=== PATIENT | male | born 1965 | race Caucasian/White ===

== ENCOUNTER 2017-10-31 10:52 | Emergency (ER) | payer BC ==
[2017-10-31 11:25] LABS: ADD MAN DIFF? NO
[2017-10-31 11:41] LABS: ANION GAP 8 (6-14); BLOOD UREA NITROGEN 18 mg/dL (8-26); BUN/CREATININE RATIO 20 (6-20); CALCIUM 8.5 mg/dL (8.5-10.1); CARBON DIOXIDE 28 mmol/L (21-32); CHLORIDE 102 mmol/L (98-107); CREATININE 0.9 mg/dL (0.7-1.3); GFR 87.9; GLUCOSE 124 mg/dL (70-99); POTASSIUM 3.9 mmol/L (3.5-5.1); SODIUM 138 mmol/L (136-145)
[2017-10-31 11:47] LABS: ALBUMIN 2.9 g/dL (3.4-5.0); ALBUMIN/GLOBULIN RATIO 0.8 (1.0-1.7); ALK PHOS 75 U/L (46-116); ALT (SGPT) 25 U/L (16-63); AST (SGOT) 27 U/L (15-37); TOTAL BILIRUBIN 0.2 mg/dL (0.2-1.0); TOTAL PROTEIN 6.4 g/dL (6.4-8.2)
[2017-10-31 12:01] LABS: BASO % 0 % (0-3); EOS % 0 % (0-3); HEMATOCRIT 42.9 % (39.0-53.0); HEMOGLOBIN 14.4 g/dL (13.0-17.5); LYMPH # 0.6 x10^3/uL (1.0-4.8); LYMPH % 11 % (24-48); MEAN CORPUSCULAR HEMOGLOBIN 32 pg (25-35); MEAN CORPUSCULAR HGB CONC 34 g/dL (31-37); MEAN CORPUSCULAR VOLUME 95 fL (79-100); MONO # 0.8 x10^3/uL (0.0-1.1); MONO % 14 % (0-9); NEUT # 3.9 x10^3uL (1.8-7.7); NEUT % 74 % (31-73); PLATELET COUNT 249 x10^3/uL (140-400); WHITE BLOOD COUNT 5.3 x10^3/uL (4.0-11.0)
[2017-10-31 12:10] LABS: TROPONINI < 0.017 ng/mL (0.000-0.055)
[2017-10-31] MEDS: IV NORMAL SALINE 1000ML BAG 1,000 ML IV ×2 (12:12)
[2017-10-31 12:15] LABS: MAGNESIUM 1.9 mg/dL (1.8-2.4)
[2017-10-31 12:15] LABS: PHOSPHORUS 2.4 mg/dL (2.6-4.7)
== END 2017-10-31 14:13 | disposition home or self-care (01) ==
LOC: ER 10:52
DX: R42 Dizziness and giddiness (principal); R00.2 Palpitations; R41.0 Disorientation, unspecified; R53.81 Other malaise; R00.0 Tachycardia, unspecified; F41.9 Anxiety disorder, unspecified; F32.9 Major depressive disorder, single episode, unspecified; F12.10 Cannabis abuse, uncomplicated
CPT/HCPCS: 36415; 70450; 80053; 83735; 84100; 84484; 85025; 93005; 96360; 99285-25; J7030

== ENCOUNTER → 2018-01-22 | Outpatient (CLI) | payer BC | END | disposition home or self-care (01) | LOC: ECHO 13:27 | DX: I05.9 Rheumatic mitral valve disease, unspecified (principal); R94.31 Abnormal electrocardiogram [ECG] [EKG] | CPT/HCPCS: 93306 ==

== ENCOUNTER 2018-02-19 06:30 | Outpatient (CLI) | payer BC ==
[2018-02-19] MEDS ORDERED: HEPARIN for ARTERIAL LINE 1,500 ML (07:07)
[2018-02-19] MEDS ORDERED: IODIXANOL 320 MG/ML 100 ML VIAL. (07:07)
[2018-02-19] MEDS ORDERED: LIDOCAINE 2% 20 ML VIAL. ×2 (07:07→08:30)
[2018-02-19 07:24] LABS: MEAN CORPUSCULAR HEMOGLOBIN 32 pg (25-35); MEAN CORPUSCULAR HGB CONC 33 g/dL (31-37); MEAN CORPUSCULAR VOLUME 95 fL (79-100); PLATELET COUNT 285 x10^3/uL (140-400); RED BLOOD COUNT 4.75 x10^6/uL (4.30-5.70); RED CELL DISTRIBUTION WIDTH 14.9 % (11.5-14.5); WHITE BLOOD COUNT 6.6 x10^3/uL (4.0-11.0)
[2018-02-19 07:42] LABS: ANION GAP 9 (6-14); BLOOD UREA NITROGEN 20 mg/dL (8-26); CALCIUM 8.3 mg/dL (8.5-10.1); CARBON DIOXIDE 29 mmol/L (21-32); CHLORIDE 103 mmol/L (98-107); CREATININE 0.9 mg/dL (0.7-1.3); GFR 87.6; GLUCOSE 118 mg/dL (70-99); POTASSIUM 4.1 mmol/L (3.5-5.1); SODIUM 141 mmol/L (136-145)
[2018-02-19 07:44] LABS: INR 0.9 (0.8-1.1)
[2018-02-19] MEDS ORDERED: fentaNYL PF VIAL 100 MCG/2 ML VIAL (07:52)
[2018-02-19] MEDS ORDERED: MIDAZOLAM HCL/PF 2 MG/2 ML VIAL. ×2 (07:52→08:23)
[2018-02-19] MEDS ORDERED: NITROGLYCERIN 200 MCG/2 ML SYRINGE FOR CATH/VASC LAB. (07:53)
[2018-02-19] MEDS ORDERED: VERAPAMIL 5 MG/2 ML VIAL. (07:53)
[2018-02-19] MEDS ORDERED: HEPARIN for IV BOLUS 10,000 UNIT/10 ML VIAL. (07:53)
[2018-02-19] MEDS ORDERED: CONTRAST GIVEN. MC (08:45)
[2018-02-19] MEDS: LIDOCAINE 2% 20 ML VIAL. IJ (08:59)
[2018-02-19] MEDS: MIDAZOLAM HCL/PF 2 MG/2 ML VIAL. IV (08:59)
[2018-02-19] MEDS: fentaNYL PF VIAL 100 MCG/2 ML VIAL IV (09:00)
[2018-02-19] MEDS: IODIXANOL 320 MG/ML 100 ML VIAL. IART (09:00)
== END 2018-02-19 12:25 | disposition home or self-care (01) ==
LOC: CCL 06:30
DX: I49.3 Ventricular premature depolarization (principal); I42.9 Cardiomyopathy, unspecified; I51.9 Heart disease, unspecified; I38 Endocarditis, valve unspecified; F32.9 Major depressive disorder, single episode, unspecified; F41.9 Anxiety disorder, unspecified; Z79.82 Long term (current) use of aspirin
CPT/HCPCS: 36415; 80048; 85027; 85610; 93460; 99152; 99153; C1769; C1771; C1773; C1892; G0269; J1644; J2250; J3010

== ENCOUNTER → 2018-11-26 | Outpatient (CLI) | payer BC ==
[2018-02-19 12:05] VITALS: BP 129/60
[~2018-11-26] MED LIST: ASPI-612 PO; AZEL23SP NS; DULO60CA6 PO; FEXO180T81 PO; LEVO80CA PO
--- NOTE | 2018-11-26 11:36 | KCIC ---
AP and Lateral Views of the Chest 11/26/2018 12:00 AM Indication: Dyspnea on exertion. Comparison: None available Findings: Severe changes of emphysema. Be present including hyperinflation with flattening of the hemidiaphragms, interstitial coarsening, and relative apical lucency. Multifocal scarring, particularly in the lung apices where there is associated pleural thickening noted bilaterally. No pneumothorax or pleural effusion is seen. No focal infiltrate is identified. Heart size is normal. Prior median sternotomy noted. No acute osseous changes are identified. IMPRESSION: Emphysematous changes as described without evidence of acute cardiopulmonary process Electronically signed by: Constantine Mark MD (11/26/2018 11:33 AM) [id number]
== END | disposition home or self-care (01) ==
LOC: KCIC 11:12
PROVIDERS: ATTEND Nurse Practitioner Family
DX: J43.9 Emphysema, unspecified (principal); J98.4 Other disorders of lung
CPT/HCPCS: 71046

== ENCOUNTER → 2019-03-08 | Outpatient (CLI) | payer BC ==
[2018-02-19 12:05] VITALS: BP 129/60
--- NOTE | 2019-03-08 17:19 | CARD ---
MR#: [id number] Date of Study: 03/08/2019 Ordering Physician: RADHA CARPIO, Referring Physician: RADHA CARPIO, Tech: Ev Dee [facility] APPROVED REPORT EXAM: Two-dimensional and M-mode echocardiogram with Doppler and color Doppler. Other Information Quality : AverageHR: 95bpm Rhythm : Other INDICATION Dyspnea Surgery/Intervention History of MV Repair and PFO closure 2007 2D DIMENSIONS RVDd3.3 (2.9-3.5cm)Left Atrium(2D)2.8 (1.6-4.0cm) IVSd1.0 (0.7-1.1cm)Aortic Root(2D)3.6 (2.0-3.7cm) LVDd5.8 (3.9-5.9cm)LVOT Diameter2.5 (1.8-2.4cm) PWd0.8 (0.7-1.1cm)LVDs5.2 (2.5-4.0cm) FS (%) 11.6 %SV42.0 ml M-Mode DIMENSIONS Left Atrium(MM)3.61 (2.5-4.0cm)Aortic Root3.94 (2.2-3.7cm) Aortic Valve AoV Peak Bob.164.6cm/sAoV VTI28.4cm AO Peak GR.10.8mmHgLVOT Peak Bob.125.0cm/s AO Mean GR.6mmHgAVA (VMAX)3.63cm2 ALEXANDREA (VTI)3.60cm2 Mitral Valve MV E Zvhgwnlv300.9cm/sMV E Peak Gr.11mmHg MV DECEL QHOS260ecRP A Loqhsrou550.3cm/s MV E Mean Gr.5mmHgE/A Ratio0.8 Pulmonary Valve PV Peak Jtygqhxz877.0cm/s LEFT VENTRICLE The Left Ventricle is borderline dilated. There is normal left ventricular wall thickness. The ejecti on fraction is moderately impaired. The Ejection Fraction is 35-40%. There is global hypokinesis of t he left ventricle. Transmitral Doppler flow pattern is Grade I-abnormal relaxation pattern. RIGHT VENTRICLE The right ventricle is normal size. There is normal right ventricular wall thickness. The right ventr icular systolic function is normal. ATRIA The left atrium size is normal. The right atrium size is normal. The interatrial septum is intact wit h no evidence for an atrial septal defect or patent foramen ovale as noted on 2-D or Doppler imaging. AORTIC VALVE The aortic valve is normal in structure and function. The aortic valve is trileaflet. Doppler and Col or Flow revealed no significant aortic regurgitation. There is no significant aortic valvular stenosi s. There is no aortic valvular vegetation. MITRAL VALVE History of Mitral Valve ring in place. There is no evidence of mitral valve prolapse. Mitral valve wi th a maximum pressure gradient of 11 mmHg and mean pressure gradient of 5 mmHg. Doppler and Color-blanca w revealed trace mitral regurgitation. TRICUSPID VALVE The tricuspid valve is normal in structure and function. Doppler and Color Flow revealed no tricuspid valve regurgitation noted. There is no tricuspid valve prolapse or vegetation. There is no tricuspid valve stenosis. PULMONIC VALVE The pulmonary valve is normal in structure and function. Doppler and Color Flow revealed trace pulmon ic valvular regurgitation. There is no pulmonic valvular stenosis. GREAT VESSELS The aortic root is normal in size at 3.6cm. The ascending aorta is normal in size. The IVC is normal in size and collapses >50% with inspiration. PERICARDIAL EFFUSION There is no evidence of significant pericardial effusion. Critical Notification Critical Value: No <Conclusion> The Left Ventricle is borderline dilated. The ejection fraction is moderately impaired. The Ejection Fraction is 35-40%. There is global hypokinesis of the left ventricle. There is no significant aortic valvular stenosis. Doppler and Color Flow revealed no significant aortic regurgitation. Mitral valve with a maximum pressure gradient of 11 mmHg and mean pressure gradient of 5 mmHg. Doppler and Color-flow revealed trace mitral regurgitation. Doppler and Color Flow revealed no tricuspid valve regurgitation noted. The aortic root is normal in size at 3.6cm. Signed by : Cleveland Roberts MD Electronically Approved : 03/08/2019 17:18:21
== END | disposition home or self-care (01) ==
LOC: ECHO 13:52
PROVIDERS: ATTEND Internal Medicine Cardiovascular Disease
DX: I05.9 Rheumatic mitral valve disease, unspecified (principal)
CPT/HCPCS: 93306

== ENCOUNTER 2019-08-17 12:24 | Inpatient (IN) | payer BC ==
[~2019-08-17] VITALS: Ht 185.4 cm; Wt 88.9 kg
--- NOTE | 2019-08-17 13:09 | PHYS DOC ---
Past Medical History Past Medical History: Anxiety, Depression Past Surgical History: Other Additional Past Surgical Histo: MITRAL VALVE REPAIR,SPINAL FUSION, lumbar discectomy Additional Information: quit smoking 2007 Alcohol Use: Heavy Additional Information: reports 1-2 beers daily Drug Use: Marijuana Adult General Chief Complaint Chief Complaint: SHORTNESS OF BREATH HPI HPI Patient is a 54 year old male who presents with cough and shortness of breath has been ongoing since Friday. Patient also has associated symptom of a mild runny nose. The patient denies fevers. Reports no pain. Denies any other symptoms. Review of Systems Review of Systems Constitutional: Denies fever or chills [] Eyes: Denies change in visual acuity, redness, or eye pain [] HENT: Reports nasal congestion/runny nose Respiratory: Reports cough and shortness of breath. Cardiovascular: No additional information not addressed in HPI [] GI: Denies abdominal pain, nausea, vomiting, bloody stools or diarrhea [] : Denies dysuria or hematuria [] Musculoskeletal: Denies back pain or joint pain [] Integument: Denies rash or skin lesions [] Neurologic: Denies headache, focal weakness or sensory changes [] Endocrine: Denies polyuria or polydipsia [] Complete systems were reviewed and found to be within normal limits, except as documented in this note. Current Medications Current Medications Current Medications Medications (Trade) Dose Ordered Sig/Cristobal Start Time Stop Time Status Last Admin Dose Admin Azithromycin 250 ml @ 250 mls/hr 1X STAT 08/17/19 14:39 08/17/19 15:38 Ceftriaxone Sodium (Rocephin) 1 gm 1X STAT 08/17/19 14:39 08/17/19 14:44 DC Heparin Sodium (Porcine) (Heparin Sodium) 1,300 unit PRN Q6HRS PRN 08/17/19 14:45 Heparin Sodium/ Dextrose 500 ml @ 0 mls/hr CONT PRN 08/17/19 14:45 Info (CONTRAST GIVEN -- Rx MONITORING) 1 each PRN DAILY PRN 08/17/19 14:00 08/19/19 13:59 Iohexol (Omnipaque 350 Mg/ml) 80 ml 1X ONCE 08/17/19 14:00 08/17/19 14:01 DC 08/17/19 13:57 80 ML Sodium Chloride 1,000 ml @ 75 mls/hr 1X STAT 08/17/19 14:39 08/18/19 03:58 Allergies Allergies Allergies Coded Allergies Type Severity Reaction Last Updated Verified [place] nut Allergy Severe ANAPHYLAXIS 08/17/19 Yes Physical Exam Physical Exam Constitutional: Well developed, well nourished, no acute distress, non-toxic ap pearance. [] HENT: Normocephalic, atraumatic, bilateral external ears normal, oropharynx moist, no oral exudates, nose normal. [] Eyes: PERRLA, EOMI, conjunctiva normal, no discharge. [] Neck: Normal range of motion, no tenderness, supple, no stridor. [] Cardiovascular:Heart rate regular rhythm, no murmur [] Lungs & Thorax: Bilateral breath sounds clear to auscultation [] Abdomen: Bowel sounds normal, soft, no tenderness, no masses, no pulsatile masses. [] Skin: Warm, dry, no erythema, no rash. [] Back: No tenderness, no CVA tenderness. [] Extremities: No tenderness, no cyanosis, no clubbing, ROM intact, no edema. [] Neurologic: Alert and oriented X 3, normal motor function, normal sensory function, no focal deficits noted. [] Psychologic: Affect normal, judgement normal, mood normal. [] Current Patient Data Vital Signs Vital Signs Date Time Temp Pulse Resp B/P (MAP) Pulse Ox O2 Delivery O2 Flow Rate FiO2 08/17/19 13:30 110 146/86 (106) 97 Room Air 08/17/19 12:33 99.0 20 99.0 Lab Values Laboratory Tests Test 08/17/19 13:00 08/17/19 14:11 White Blood Count 5.0 x10^3/uL (4.0-11.0) Red Blood Count 5.16 x10^6/uL (4.30-5.70) Hemoglobin 16.7 g/dL (13.0-17.5) Hematocrit 50.2 % (39.0-53.0) Mean Corpuscular Volume 97 fL (79-100) Mean Corpuscular Hemoglobin 32 pg (25-35) Mean Corpuscular Hemoglobin Concent 33 g/dL (31-37) Red Cell Distribution Width 13.5 % (11.5-14.5) Platelet Count 213 x10^3/uL (140-400) Neutrophils (%) (Auto) 66 % (31-73) Lymphocytes (%) (Auto) 15 % (24-48) L Monocytes (%) (Auto) 18 % (0-9) H Eosinophils (%) (Auto) 1 % (0-3) Basophils (%) (Auto) 0 % (0-3) Neutrophils # (Auto) 3.3 x10^3/uL (1.8-7.7) Lymphocytes # (Auto) 0.8 x10^3/uL (1.0-4.8) L Monocytes # (Auto) 0.9 x10^3/uL (0.0-1.1) Eosinophils # (Auto) 0.0 x10^3/uL (0.0-0.7) Basophils # (Auto) 0.0 x10^3/uL (0.0-0.2) Segmented Neutrophils % 53 % (35-66) Band Neutrophils % 15 % (0-9) H Lymphocytes % 9 % (24-48) L Atypical Lymphocytes % (Manual) 5 % (0-0) H Monocytes % 15 % (0-10) H Eosinophils % 1 % (0-5) Basophils % 2 % (0-3) Platelet Estimate Adequate (ADEQUATE) Prothrombin Time 12.2 SEC (11.7-14.0) Prothrombin Time INR 0.9 (0.8-1.1) Activated Partial Thromboplast Time 26 SEC (24-38) D-Dimer (Amy) 1.01 ug/mlFEU (0.00-0.50) H Sodium Level 135 mmol/L (136-145) L Potassium Level 3.5 mmol/L (3.5-5.1) Chloride Level 99 mmol/L (98-107) Carbon Dioxide Level 24 mmol/L (21-32) Anion Gap 12 (6-14) Blood Urea Nitrogen 14 mg/dL (8-26) Creatinine 1.4 mg/dL (0.7-1.3) H Estimated GFR (Cockcroft-Gault) 52.4 BUN/Creatinine Ratio 10 (6-20) Glucose Level 182 mg/dL (70-99) H Calcium Level 8.7 mg/dL (8.5-10.1) Magnesium Level 1.9 mg/dL (1.8-2.4) Total Bilirubin 0.3 mg/dL (0.2-1.0) Aspartate Amino Transferase (AST) 24 U/L (15-37) Alanine Aminotransferase (ALT) 20 U/L (16-63) Alkaline Phosphatase 73 U/L (46-116) Creatine Kinase 94 U/L (39-308) Creatine Kinase MB (Mass) 1.9 ng/mL (0.0-3.6) Creatine Kinase MB Relative Index 2.0 % (0-4) Troponin I Quantitative < 0.017 ng/mL (0.000-0.055) GG-Hne-X-Type Natriuretic Peptide 471 pg/mL (0-124) H Total Protein 7.1 g/dL (6.4-8.2) Albumin 3.0 g/dL (3.4-5.0) L Albumin/Globulin Ratio 0.7 (1.0-1.7) L Procalcitonin 0.11 ng/mL (0.00-0.10) H Influenza Type A Antigen Negative (NEGATIVE) Influenza Type B Antigen Negative (NEGATIVE) Laboratory Tests 08/17/19 13:00 Laboratory Tests 08/17/19 13:00 EKG EKG EKG interpreted by Dr. Jeff Sinus tachycardia with rate of 107, leftward axis with pvc's noted.[] Radiology/Procedures Radiology/Procedures [facility] [address] [place] [address] IMAGING REPORT Signed PATIENT: ALESSANDRA ALEX ACCOUNT: [id number] : 1965 LOCATION: ER AGE: 54 SEX: M EXAM STATUS: REG ER ORD. PHYSICIAN: BRIDGER GAY APRN REASON: shortness of breath, tachycardic, elevated d-dimer PROCEDURE: CT ANGIOGRAPHY CHEST Chest CTA History: Tachycardia, elevated d-dimer Technique: After bolus of intravenous contrast, CT imaging was performed of the chest. Multiplanar reconstruction images to include MIP reconstruction images are submitted. Exposure: One or more of the following individualized dose reduction techniques were utilized for this examination: 1. Automated exposure control 2. Adjustment of the mA and/or kV according to patient size 3. Use of iterative reconstruction technique. Comparison: None Findings: There is motion degradation. No pulmonary embolism is identified of the main pulmonary arteries. Accurate evaluation of the smaller and more distal branches of pulmonary arteries is limited due to motion, likely some smaller emboli of smaller lower lobe branches bilaterally and also likely of the right upper lobe and questionable in the left upper lobe. However accurate evaluation is again limited due to motion. There is large bulla of the anterior right hemithorax, also significant centrilobular emphysema bilaterally. There has been median sternotomy. There is some coronary calcification. There is no pleural or pericardial fluid or pneumothorax. There is some pleural thickening near the right lung apex. There is left hepatic cyst about 1.4 cm transverse. There is mild left lower lobe infiltrate. There is subcarinal lymph node about 1.2 cm short axis dimension. There is right hilar node about 0.8 cm short axis dimension. Impression: 1. Accurate evaluation of smaller and more distal branches is limited due to motion, probably some smaller pulmonary emboli of the lower lobes bilaterally and possibly of the right upper lobe although limited characterization. No pulmonary embolism is identified of the main pulmonary arteries. 2. There is emphysema. There is large bulla on the right. 3. There is mild left lower lobe infiltrate. 4. There is some coronary calcification. 5. There is nonspecific somewhat prominent subcarinal lymph node. Critical results were discussed with BRIDGER GAY at 08/17/2019 2:19 PM. Electronically signed by: Amando Dobbins MD (08/17/2019 2:19 PM) [facility] DICTATED and SIGNED BY: AMANDO DOBBINS MD DATE: 08/17/19 1419 [][facility] [address] [place] [address] IMAGING REPORT Signed PATIENT: ALESSANDRA ALEX ACCOUNT: [id number] : 1965 LOCATION: ER AGE: 54 SEX: M EXAM STATUS: REG ER ORD. PHYSICIAN: BRIDGER GAY APRN REASON: cough, sob since Friday. PROCEDURE: CHEST PA & LATERAL Study: CHEST PA LATERAL Indication: Cough. Shortness of breath. Comparison: 11/26/2018 Findings: Emphysematous changes of the lungs with redemonstrated findings suggestive of bullae formation. Relatively symmetric haziness at the mid to lower lung mccullough bilaterally appears mostly related to superimposed breast tissue. No localized infiltrate or layering effusion. Apical scarring. No pneumothorax. Unchanged cardiomediastinal silhouette. Unchanged prominence of the central vascular structures. Intact median sternotomy wires. Impression: Redemonstrated severe emphysematous changes. No newly seen lobar infiltrate, layering effusion or pneumothorax. Electronically signed by: NEVILLE RODRIGUEZ MD (08/17/2019 1:41 PM) [facility] DICTATED and SIGNED BY: NEVILLE RODRIGUEZ MD DATE: 08/17/19 134 Course & Med Decision Making Course & Med Decision Making Pertinent Labs and Imaging studies reviewed. (See chart for details) Will get chest x-ray, labs, and ekg.[] D-dimer is elevated at 1.01. Will order a CT angio of the chest. Creatinine is elevated at 1.4 which is higher than baseline of 0.9. Impression: 1. Accurate evaluation of smaller and more distal branches is limited due to motion, probably some smaller pulmonary emboli of the lower lobes bilaterally and possibly of the right upper lobe although limited characterization. No pulmonary embolism is identified of the main pulmonary arteries. 2. There is emphysema. There is large bulla on the right. 3. There is mild left lower lobe infiltrate. 4. There is some coronary calcification. 5. There is nonspecific somewhat prominent subcarinal lymph node. Critical results were discussed with BRIDGER GAY at 08/17/2019 2:19 PM. Electronically signed by: Amando Dobbins MD (08/17/2019 2:19 PM) [place] [id number] Turpin for admission to hospital; the patient has mild lower lobe infiltrate, smaller pulmonary embolia, and CONSTANTINO. Will place on Rocephin and Azithromycin for infiltrate. Will start on Heparin bolus for PE. Discussed with Dr. Turpin at 1450 who accepts admission to hospital. Dragon Disclaimer Dragon Disclaimer This electronic medical record was generated, in whole or in part, using a voice recognition dictation system. Departure Departure Impression: Primary Impression: Pulmonary emboli Additional Impressions: Pneumonia CONSTANTINO (acute kidney injury) Disposition: 09 ADMITTED INPATIENT Admitting Physician: HIMS Condition: STABLE Referrals: DELONTE DAVIS MD (PCP) Problem Qualifiers Primary Impression: Pulmonary emboli Pulmonary embolism type: unspecified Chronicity: acute Acute cor pulmonale presence: unspecified Qualified Codes: I26.99 - Other pulmonary embolism without acute cor pulmonale Additional Impressions: Pneumonia Pneumonia type: due to unspecified organism Laterality: left Lung locat ion: lower lobe of lung Qualified Codes: J18.9 - Pneumonia, unspecified organism BRIDGER GAY APRN Aug 17, 2019 13:09
[2019-08-17 13:19] LABS: BASO % 0 % (0-3); EOS % 1 % (0-3); HEMATOCRIT 50.2 % (39.0-53.0); HEMOGLOBIN 16.7 g/dL (13.0-17.5); LYMPH # 0.8 x10^3/uL (1.0-4.8); LYMPH % 15 % (24-48); MEAN CORPUSCULAR HEMOGLOBIN 32 pg (25-35); MEAN CORPUSCULAR HGB CONC 33 g/dL (31-37); MEAN CORPUSCULAR VOLUME 97 fL (79-100); MONO # 0.9 x10^3/uL (0.0-1.1); MONO % 18 % (0-9); NEUT # 3.3 x10^3/uL (1.8-7.7); NEUT % 66 % (31-73); PLATELET COUNT 213 x10^3/uL (140-400); RED BLOOD COUNT 5.16 x10^6/uL (4.30-5.70); RED CELL DISTRIBUTION WIDTH 13.5 % (11.5-14.5)
[2019-08-17 13:22] LABS: PROTHROMBIN TIME PATIENT 12.2 SEC (11.7-14.0)
[2019-08-17 13:23] LABS: CALCIUM 8.7 mg/dL (8.5-10.1); CREATININE 1.4 mg/dL (0.7-1.3); GFR 52.4; POTASSIUM 3.5 mmol/L (3.5-5.1)
[2019-08-17 13:27] LABS: D-DIMER 1.01 ug/mlFEU (0.00-0.50)
[2019-08-17 13:30] LABS: ALBUMIN/GLOBULIN RATIO 0.7 (1.0-1.7); MAGNESIUM 1.9 mg/dL (1.8-2.4); TOTAL BILIRUBIN 0.3 mg/dL (0.2-1.0); TOTAL PROTEIN 7.1 g/dL (6.4-8.2)
--- NOTE | 2019-08-17 13:44 | RAD ---
Study: CHEST PA LATERAL Indication: Cough. Shortness of breath. Comparison: 11/26/2018 Findings: Emphysematous changes of the lungs with redemonstrated findings suggestive of bullae formation. Relatively symmetric haziness at the mid to lower lung mccullough bilaterally appears mostly related to superimposed breast tissue. No localized infiltrate or layering effusion. Apical scarring. No pneumothorax. Unchanged cardiomediastinal silhouette. Unchanged prominence of the central vascular structures. Intact median sternotomy wires. Impression: Redemonstrated severe emphysematous changes. No newly seen lobar infiltrate, layering effusion or pneumothorax. Electronically signed by: NEVILLE RODRIGUZE MD (08/17/2019 1:41 PM) [facility]
[2019-08-17] MEDS ORDERED: IV NORMAL SALINE 500ML BAG 500 ML IV STA (13:48)
[2019-08-17] MEDS ORDERED: CONTRAST GIVEN. MC PRN (14:00)
[2019-08-17] MEDS ORDERED: IOHEXOL 350 MG/ML 100 ML VIAL. IV ONE (14:00)
--- NOTE | 2019-08-17 14:17 | EKG ---
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
--- NOTE | 2019-08-17 14:18 | EKG ---
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
--- NOTE | 2019-08-17 14:22 | RAD ---
Chest CTA History: Tachycardia, elevated d-dimer Technique: After bolus of intravenous contrast, CT imaging was performed of the chest. Multiplanar reconstruction images to include MIP reconstruction images are submitted. Exposure: One or more of the following individualized dose reduction techniques were utilized for this examination: 1. Automated exposure control 2. Adjustment of the mA and/or kV according to patient size 3. Use of iterative reconstruction technique. Comparison: None Findings: There is motion degradation. No pulmonary embolism is identified of the main pulmonary arteries. Accurate evaluation of the smaller and more distal branches of pulmonary arteries is limited due to motion, likely some smaller emboli of smaller lower lobe branches bilaterally and also likely of the right upper lobe and questionable in the left upper lobe. However accurate evaluation is again limited due to motion. There is large bulla of the anterior right hemithorax, also significant centrilobular emphysema bilaterally. There has been median sternotomy. There is some coronary calcification. There is no pleural or pericardial fluid or pneumothorax. There is some pleural thickening near the right lung apex. There is left hepatic cyst about 1.4 cm transverse. There is mild left lower lobe infiltrate. There is subcarinal lymph node about 1.2 cm short axis dimension. There is right hilar node about 0.8 cm short axis dimension. Impression: 1. Accurate evaluation of smaller and more distal branches is limited due to motion, probably some smaller pulmonary emboli of the lower lobes bilaterally and possibly of the right upper lobe although limited characterization. No pulmonary embolism is identified of the main pulmonary arteries. 2. There is emphysema. There is large bulla on the right. 3. There is mild left lower lobe infiltrate. 4. There is some coronary calcification. 5. There is nonspecific somewhat prominent subcarinal lymph node. Critical results were discussed with BRIDGER GAY at 08/17/2019 2:19 PM. Electronically signed by: Nicholas Arredondo MD (08/17/2019 2:19 PM) [id number]
[2019-08-17] MEDS ORDERED: AZITHRMYCN 500MG IVPB FOR OMNI 250 ML IV STA (14:39)
[2019-08-17] MEDS ORDERED: IV NORMAL SALINE 1000ML BAG 1,000 ML IV STA (14:39)
[2019-08-17] MEDS ORDERED: cefTRIAXone IV Push 1 GM VIAL. IVP STA (14:39)
[2019-08-17 14:41] LABS: INFLUENZA A PATIENT NEGATIVE (NEGATIVE); INFLUENZA B PATIENT NEGATIVE (NEGATIVE)
[2019-08-17] MEDS ORDERED: HEPARIN for IV BOLUS 10,000 UNIT/10 ML VIAL. IV ONE (14:45)
[2019-08-17] MEDS ORDERED: HEPARIN for IV BOLUS 10,000 UNIT/10 ML VIAL. IV PRN ×2 (14:45)
[2019-08-17 14:51] LABS: % ATYL 5 % (0-0); % BANDS 15 % (0-9); % BASOS 2 % (0-3); % EOS 1 % (0-5); % LYMPHS 9 % (24-48); % MONOS 15 % (0-10); % SEGS 53 % (35-66)
[2019-08-17 14:52] LABS: PLT ESTIMATE ADEQUATE (ADEQUATE)
[2019-08-17] MEDS ORDERED: ONDANSETRON PF 4 MG/2 ML VIAL. IV PRN ×2 (15:00→16:00)
[2019-08-17] MEDS ORDERED: MORPHINE SULFATE 2 MG/ML VIAL. IV PRN (15:00)
--- NOTE | 2019-08-17 15:18 | PDOC1 ---
History and Physical Date of Admission Date of Admission DATE: 08/17/19 TIME: 15:15 Identification/Chief Complaint Chief Complaint SEEN IN ER , 54 year old male who presents with cough and shortness of breath has been ongoing since Friday. associated symptom of a mild runny nose. The patient denies fevers. Reports no pain Past Medical History Past Medical History Past Medical History Past Medical History: Anxiety, Depression Past Surgical History: Other Additional Past Surgical Histo: MITRAL VALVE REPAIR,SPINAL FUSION, lumbar discectomy Additional Information: quit smoking 2007 Alcohol Use: Heavy Additional Information: reports 1-2 beers daily Drug Use: Marijuana FHX DVT'S Infectious disease: No pertinent hx Family History Family History: High Cholestrol, Hypertension Social History Smoke: No ALCOHOL: occassional Drugs: None Current Problem List Problem List Problems Medical Problems: (1) CONSTANTINO (acute kidney injury) Status: Acute (2) Pneumonia Status: Acute (3) Pulmonary emboli Status: Acute Current Medications Current Medications Current Medications Iohexol (Omnipaque 350 Mg/ml) 80 ml 1X ONCE IV Last administered on 08/17/19at 13:57; Start 08/17/19 at 14:00; Stop 08/17/19 at 14:01; Status DC Info (CONTRAST GIVEN -- Rx MONITORING) 1 each PRN DAILY PRN MC SEE COMMENTS; Start 08/17/19 at 14:00; Stop 08/19/19 at 13:59 Sodium Chloride 500 ml @ 500 mls/hr 1X STAT IV Last administered on 08/17/19at 14:11; Start 08/17/19 at 13:48; Stop 08/17/19 at 14:47; Status DC Ceftriaxone Sodium (Rocephin) 1 gm 1X STAT IVP Last administered on 08/17/19at 14:57; Start 08/17/19 at 14:39; Stop 08/17/19 at 14:44; Status DC Azithromycin 250 ml @ 250 mls/hr 1X STAT IV Last administered on 08/17/19at 15:04; Start 08/17/19 at 14:39; Stop 08/17/19 at 15:38 Sodium Chloride 1,000 ml @ 75 mls/hr 1X STAT IV ; Start 08/17/19 at 14:39; Stop 08/18/19 at 03:58 Heparin Sodium (Porcine) (Heparin Sodium) 6,950 unit 1X ONCE IV ; Start 08/17/19 at 14:45; Stop 08/17/19 at 14:46; Status DC Heparin Sodium/ Dextrose 500 ml @ 0 mls/hr CONT PRN IV PER PROTOCOL; Start 08/17/19 at 14:45 Heparin Sodium (Porcine) (Heparin Sodium) 2,600 unit PRN Q6HRS PRN IV FOR UFH LEVEL LESS THAN 0.2; Start 08/17/19 at 14:45 Heparin Sodium (Porcine) (Heparin Sodium) 1,300 unit PRN Q6HRS PRN IV FOR UFH LEVEL 0.2 - 0.29; Start 08/17/19 at 14:45 Ondansetron HCl (Zofran) 4 mg PRN Q8HRS PRN IV NAUSEA/VOMITING; Start 08/17/19 at 15:00; Stop 08/18/19 at 14:59 Morphine Sulfate (Morphine Sulfate) 2 mg PRN Q2HR PRN IV PAIN; Start 08/17/19 at 15:00; Stop 08/18/19 at 14:59 Albuterol/ Ipratropium (Duoneb) 3 ml RTQID NEB ; Start 08/17/19 at 16:00; Stop 08/18/19 at 15:59 Active Scripts Active Reported Comfort Allergy (Fexofenadine Hcl) 180 Mg Tablet 1 Tab PO DAILY Dymista Nasal Jack (Azelastine/Fluticasone) 23 Gm Jack.pump 1 Jack NS BID Aspirin Ec (Aspirin) 81 Mg Tablet.dr 1 Tab PO DAILY Fetzima (Levomilnacipran Hydrochloride) 80 Mg Cap.sa.24h 80 Mg PO Cymbalta (Duloxetine Hcl) 60 Mg Capsule.dr 1 Cap PO DAILY Allergies Allergies: Coded Allergies: Austin nut (Verified Allergy, Severe, ANAPHYLAXIS, 08/17/19) ROS Review of System Review of Systems Review of Systems Constitutional: Denies fever or chills [] Eyes: Denies change in visual acuity, redness, or eye pain [] HENT: Reports nasal congestion/runny nose Respiratory: Reports cough and shortness of breath. Cardiovascular: No additional information not addressed in HPI [] GI: Denies abdominal pain, nausea, vomiting, bloody stools or diarrhea [] : Denies dysuria or hematuria [] Musculoskeletal: Denies back pain or joint pain [] Integument: Denies rash or skin lesions [] Neurologic: Denies headache, focal weakness or sensory changes [] Endocrine: Denies polyuria or polydipsia [] 14 PT systems were reviewed and found to be within normal limits, except as documented PSYCHOLOGICAL ROS: No: Anxiety, Behavioral Disorder, Concentration difficultie, Decreased libido, Depression, Disorientation, Hallucinations, Hostility, Irritablity, Memory difficulties, Mood Swings, Obsessive thoughts, Physical abuse, Sexual abuse, Sleep disturbances, Suicidal ideation, Other Respiratory: YES: Cough, Shortness of breath, SOB with excertion Physical Exam Physical Exam Physical Exam Physical Exam Constitutional: Well developed, well nourished, no acute distress, non-toxic appearance. [] HENT: Normocephalic, atraumatic, bilateral external ears normal, oropharynx moist, no oral exudates, nose normal. [] Eyes: PERRLA, EOMI, conjunctiva normal, no discharge. [] Neck: Normal range of motion, no tenderness, supple, no stridor. [] Cardiovascular:Heart rate regular rhythm, no murmur [] Lungs & Thorax: Bilateral breath sounds clear to auscultation [] Abdomen: Bowel sounds normal, soft, no tenderness, no masses, no pulsatile masses. [] Skin: Warm, dry, no erythema, no rash. [] Back: No tenderness, no CVA tenderness. [] Extremities: No tenderness, no cyanosis, no clubbing, ROM intact, no edema. [] Neurologic: Alert and oriented X 3, normal motor function, normal sensory function, no focal deficits noted. [] Psychologic: Affect normal, judgement normal, mood normal. [] General: Alert, Oriented X3, Cooperative, No acute distress HEENT: Atraumatic, EOMI, Mucous membr. moist/pink Lungs: Normal air movement Heart: RRR, no thrills Abdomen: Normal bowel sounds, Soft Rectal Exam: not examined PELVIC: Examination not indicated Extremities: No cyanosis Neuro: Normal speech, Cranial nerves 3-12 NL Psych/Mental Status: Mental status NL, Mood NL Vitals Vitals Vital Signs Date Time Temp Pulse Resp B/P (MAP) Pulse Ox O2 Delivery O2 Flow Rate FiO2 08/17/19 13:30 110 146/86 (106) 97 Room Air 08/17/19 12:33 99.0 20 99.0 Labs Labs Laboratory Tests Test 08/17/19 13:00 08/17/19 14:11 White Blood Count 5.0 x10^3/uL (4.0-11.0) Red Blood Count 5.16 x10^6/uL (4.30-5.70) Hemoglobin 16.7 g/dL (13.0-17.5) Hematocrit 50.2 % (39.0-53.0) Mean Corpuscular Volume 97 fL (79-100) Mean Corpuscular Hemoglobin 32 pg (25-35) Mean Corpuscular Hemoglobin Concent 33 g/dL (31-37) Red Cell Distribution Width 13.5 % (11.5-14.5) Platelet Count 213 x10^3/uL (140-400) Neutrophils (%) (Auto) 66 % (31-73) Lymphocytes (%) (Auto) 15 % (24-48) Monocytes (%) (Auto) 18 % (0-9) Eosinophils (%) (Auto) 1 % (0-3) Basophils (%) (Auto) 0 % (0-3) Neutrophils # (Auto) 3.3 x10^3/uL (1.8-7.7) Lymphocytes # (Auto) 0.8 x10^3/uL (1.0-4.8) Monocytes # (Auto) 0.9 x10^3/uL (0.0-1.1) Eosinophils # (Auto) 0.0 x10^3/uL (0.0-0.7) Basophils # (Auto) 0.0 x10^3/uL (0.0-0.2) Segmented Neutrophils % 53 % (35-66) Band Neutrophils % 15 % (0-9) Lymphocytes % 9 % (24-48) Atypical Lymphocytes % (Manual) 5 % (0-0) Monocytes % 15 % (0-10) Eosinophils % 1 % (0-5) Basophils % 2 % (0-3) Platelet Estimate Adequate (ADEQUATE) Prothrombin Time 12.2 SEC (11.7-14.0) Prothromb Time International Ratio 0.9 (0.8-1.1) Activated Partial Thromboplast Time 26 SEC (24-38) D-Dimer (Amy) 1.01 ug/mlFEU (0.00-0.50) Sodium Level 135 mmol/L (136-145) Potassium Level 3.5 mmol/L (3.5-5.1) Chloride Level 99 mmol/L (98-107) Carbon Dioxide Level 24 mmol/L (21-32) Anion Gap 12 (6-14) Blood Urea Nitrogen 14 mg/dL (8-26) Creatinine 1.4 mg/dL (0.7-1.3) Estimated GFR (Cockcroft-Gault) 52.4 BUN/Creatinine Ratio 10 (6-20) Glucose Level 182 mg/dL (70-99) Calcium Level 8.7 mg/dL (8.5-10.1) Magnesium Level 1.9 mg/dL (1.8-2.4) Total Bilirubin 0.3 mg/dL (0.2-1.0) Aspartate Amino Transf (AST/SGOT) 24 U/L (15-37) Alanine Aminotransferase (ALT/SGPT) 20 U/L (16-63) Alkaline Phosphatase 73 U/L (46-116) Creatine Kinase 94 U/L (39-308) Creatine Kinase MB (Mass) 1.9 ng/mL (0.0-3.6) Creatine Kinase MB Relative Index 2.0 % (0-4) Troponin I Quantitative < 0.017 ng/mL (0.000-0.055) CY-Qym-U-Type Natriuretic Peptide 471 pg/mL (0-124) Total Protein 7.1 g/dL (6.4-8.2) Albumin 3.0 g/dL (3.4-5.0) Albumin/Globulin Ratio 0.7 (1.0-1.7) Procalcitonin 0.11 ng/mL (0.00-0.10) Influenza Type A Antigen Negative (NEGATIVE) Influenza Type B Antigen Negative (NEGATIVE) Laboratory Tests Test 08/17/19 13:00 08/17/19 14:11 White Blood Count 5.0 x10^3/uL (4.0-11.0) Red Blood Count 5.16 x10^6/uL (4.30-5.70) Hemoglobin 16.7 g/dL (13.0-17.5) Hematocrit 50.2 % (39.0-53.0) Mean Corpuscular Volume 97 fL (79-100) Mean Corpuscular Hemoglobin 32 pg (25-35) Mean Corpuscular Hemoglobin Concent 33 g/dL (31-37) Red Cell Distribution Width 13.5 % (11.5-14.5) Platelet Count 213 x10^3/uL (140-400) Neutrophils (%) (Auto) 66 % (31-73) Lymphocytes (%) (Auto) 15 % (24-48) Monocytes (%) (Auto) 18 % (0-9) Eosinophils (%) (Auto) 1 % (0-3) Basophils (%) (Auto) 0 % (0-3) Neutrophils # (Auto) 3.3 x10^3/uL (1.8-7.7) Lymphocytes # (Auto) 0.8 x10^3/uL (1.0-4.8) Monocytes # (Auto) 0.9 x10^3/uL (0.0-1.1) Eosinophils # (Auto) 0.0 x10^3/uL (0.0-0.7) Basophils # (Auto) 0.0 x10^3/uL (0.0-0.2) Segmented Neutrophils % 53 % (35-66) Band Neutrophils % 15 % (0-9) Lymphocytes % 9 % (24-48) Atypical Lymphocytes % (Manual) 5 % (0-0) Monocytes % 15 % (0-10) Eosinophils % 1 % (0-5) Basophils % 2 % (0-3) Platelet Estimate Adequate (ADEQUATE) Prothrombin Time 12.2 SEC (11.7-14.0) Prothromb Time International Ratio 0.9 (0.8-1.1) Activated Partial Thromboplast Time 26 SEC (24-38) D-Dimer (Amy) 1.01 ug/mlFEU (0.00-0.50) Sodium Level 135 mmol/L (136-145) Potassium Level 3.5 mmol/L (3.5-5.1) Chloride Level 99 mmol/L (98-107) Carbon Dioxide Level 24 mmol/L (21-32) Anion Gap 12 (6-14) Blood Urea Nitrogen 14 mg/dL (8-26) Creatinine 1.4 mg/dL (0.7-1.3) Estimated GFR (Cockcroft-Gault) 52.4 BUN/Creatinine Ratio 10 (6-20) Glucose Level 182 mg/dL (70-99) Calcium Level 8.7 mg/dL (8.5-10.1) Magnesium Level 1.9 mg/dL (1.8-2.4) Total Bilirubin 0.3 mg/dL (0.2-1.0) Aspartate Amino Transf (AST/SGOT) 24 U/L (15-37) Alanine Aminotransferase (ALT/SGPT) 20 U/L (16-63) Alkaline Phosphatase 73 U/L (46-116) Creatine Kinase 94 U/L (39-308) Creatine Kinase MB (Mass) 1.9 ng/mL (0.0-3.6) Creatine Kinase MB Relative Index 2.0 % (0-4) Troponin I Quantitative < 0.017 ng/mL (0.000-0.055) KP-Idi-Q-Type Natriuretic Peptide 471 pg/mL (0-124) Total Protein 7.1 g/dL (6.4-8.2) Albumin 3.0 g/dL (3.4-5.0) Albumin/Globulin Ratio 0.7 (1.0-1.7) Procalcitonin 0.11 ng/mL (0.00-0.10) Influenza Type A Antigen Negative (NEGATIVE) Influenza Type B Antigen Negative (NEGATIVE) Images Images Chest CTA History: Tachycardia, elevated d-dimer Technique: After bolus of intravenous contrast, CT imaging was performed of the chest. Multiplanar reconstruction images to include MIP reconstruction images are submitted. Exposure: One or more of the following individualized dose reduction techniques were utilized for this examination: 1. Automated exposure control 2. Adjustment of the mA and/or kV according to patient size 3. Use of iterative reconstruction technique. Comparison: None Findings: There is motion degradation. No pulmonary embolism is identified of the main pulmonary arteries. Accurate evaluation of the smaller and more distal branches of pulmonary arteries is limited due to motion, likely some smaller emboli of smaller lower lobe branches bilaterally and also likely of the right upper lobe and questionable in the left upper lobe. However accurate evaluation is again limited due to motion. There is large bulla of the anterior right hemithorax, also significant centrilobular emphysema bilaterally. There has been median sternotomy. There is some coronary calcification. There is no pleural or pericardial fluid or pneumothorax. There is some pleural thickening near the right lung apex. There is left hepatic cyst about 1.4 cm transverse. There is mild left lower lobe infiltrate. There is subcarinal lymph node about 1.2 cm short axis dimension. There is right hilar node about 0.8 cm short axis dimension. Impression: 1. Accurate evaluation of smaller and more distal branches is limited due to motion, probably some smaller pulmonary emboli of the lower lobes bilaterally and possibly of the right upper lobe although limited characterization. No pulmonary embolism is identified of the main pulmonary arteries. 2. There is emphysema. There is large bulla on the right. 3. There is mild left lower lobe infiltrate. 4. There is some coronary calcification. 5. There is nonspecific somewhat prominent subcarinal lymph node. Critical results were discussed with BRIDGER GAY at 08/17/2019 2:19 VTE Prophylaxis Ordered VTE Prophylaxis Devices: Contraindicated VTE Pharmacological Prophylaxi: Yes Assessment/Plan Assessment/Plan Impression: 1. SUSPECT smaller pulmonary emboli of the lower lobes bilaterally and possibly of the right upper lobe although limited characterization. No pulmonary embolism is identified of the main pulmonary arteries. 2. emphysema. There is large bulla on the right. 3. mild left lower lobe infiltrate. 4. HX ALCOHOL ABUSE PLAN ADMIT PULM CONSULT EMPERIC IV ANTIBIOTICS, ZITHROMAX, ROCEPHIN HEPARIN PROTOCOL FOR PE IV ZITHROMAX, ROCEPHIN GI PROPHYLAXIS BLOOD CULT O2 SUPPORT JUAN PABLO FRANCISCO MD Aug 17, 2019 15:18
[2019-08-17] MEDS: HEPARIN 25,000UTS/500ML PREMIX 500 ML IV PRN (15:21)
[2019-08-17] MEDS: IPRATRPIUM/ALBUTEROL 0.5/2.5MG 3 ML NEBU. NEB SCH ×2 (15:57→19:31)
[2019-08-17] MEDS ORDERED: LORazepam 0.5 MG TABLET PO PRN (16:00)
[2019-08-17] MEDS ORDERED: HALOPERIDOL LACTATE 5 MG/ML VIAL. IVP PRN (16:00)
[2019-08-17] MEDS ORDERED: 0.9 % SODIUM CHLORIDE 10 ML DISP.SYRIN. IV PRN (16:00)
[2019-08-17] MEDS ORDERED: ALBUTEROL SULFATE 2.5 MG/3 ML NEBU. NEB PRN (16:00)
[2019-08-17] MEDS ORDERED: ACETAMINOPHEN 325 MG TABLET. PO PRN (16:00)
[2019-08-17] MEDS ORDERED: cloNIDine HCL 0.1 MG TABLET PO PRN ×2 (16:00)
[2019-08-17] MEDS ORDERED: DOCUSATE SODIUM 100 MG CAPSULE. PO PRN (16:00)
[2019-08-17] MEDS ORDERED: MAG HYDROX/ALUMINUM HYD/SIMETH 30 ML ORAL.SUSP PO PRN (16:00)
[2019-08-17] MEDS ORDERED: guaiFENesin ORAL 200 MG/10 ML LIQUID. PO PRN (16:00)
[2019-08-17] MEDS ORDERED: diphenhydrAMINE 50 MG/ML VIAL IVP PRN (16:00)
[2019-08-17] MEDS ORDERED: LORazepam 1 MG TABLET PO PRN ×2 (16:00)
[2019-08-17] MEDS ORDERED: ANTI-COAG MONITOR BY PHARMACY. MC PRN (16:15)
[2019-08-17 16:49] VITALS: BP 142/90
[2019-08-17] MEDS ORDERED: MULTIVIT INFUSN,ADULT 4,VIT K 10 ML, THIAMINE INJ 100 MG, FOLIC ACID INJ 1 MG in IV NOR... IV ONE (17:00)
[2019-08-17] MEDS ORDERED: PROP20TA PO (17:37)
[2019-08-17] MEDS ORDERED: DULoxetine HCL 30 MG CAPSULE.DR PO SCH (18:00)
[2019-08-17] MEDS ORDERED: PROPRANOLOL 10 MG TABLET. PO SCH (18:00)
--- NOTE | 2019-08-17 18:07 | NUR ---
Patient arrived to room 211 via bed, transferred to bed independently, alert and oriented, heparin gtt running, vitals stable, at bedside. Dr. Velasquez notified of consult, callback received continue plan of care. Will continue to monitor.
[2019-08-17 19:11] VITALS: BP 154/70
[2019-08-17] MEDS ORDERED: FLU VAX QS 2019-20 (36MOS+)/PF 0.5 ML SYRINGE. VAX IM ONE (21:00)
[2019-08-17] MEDS ORDERED: METO50TA4 PO (21:45)
--- NOTE | 2019-08-17 21:45 | NUR ---
Patient corrected his home medication beta colleen is NOT propanolol but rather is metoprolol 25 mg once daily. Confirmed to patient by once she returned home and sent the patient a message via cell text. Entered as metoprolol succinate in home med rec.
[2019-08-17 22:31] VITALS: BP 136/85
[2019-08-18 02:56] VITALS: BP 136/73
[2019-08-18 05:07] LABS: BASO % 1 % (0-3); EOS # 0.1 x10^3/uL (0.0-0.7); EOS % 2 % (0-3); HEMATOCRIT 45.1 % (39.0-53.0); HEMOGLOBIN 14.9 g/dL (13.0-17.5); LYMPH # 1.8 x10^3/uL (1.0-4.8); LYMPH % 40 % (24-48); MEAN CORPUSCULAR HEMOGLOBIN 32 pg (25-35); MEAN CORPUSCULAR HGB CONC 33 g/dL (31-37); MEAN CORPUSCULAR VOLUME 98 fL (79-100); MONO # 0.9 x10^3/uL (0.0-1.1); MONO % 20 % (0-9); NEUT # 1.6 x10^3/uL (1.8-7.7); NEUT % 37 % (31-73); PLATELET COUNT 172 x10^3/uL (140-400); RED CELL DISTRIBUTION WIDTH 13.6 % (11.5-14.5); WHITE BLOOD COUNT 4.4 x10^3/uL (4.0-11.0)
[2019-08-18 06:07] LABS: ALBUMIN 2.3 g/dL (3.4-5.0); ALBUMIN/GLOBULIN RATIO 0.7 (1.0-1.7); CALCIUM 8.2 mg/dL (8.5-10.1); CREATININE 1.1 mg/dL (0.7-1.3); GFR 69.2; POTASSIUM 3.7 mmol/L (3.5-5.1); TOTAL BILIRUBIN 0.2 mg/dL (0.2-1.0); TOTAL PROTEIN 5.7 g/dL (6.4-8.2)
[2019-08-18 07:00] VITALS: BP 142/77
[2019-08-18] MEDS ORDERED: AZITHRMYCN 500MG IVPB FOR OMNI 250 ML IV SCH (08:00)
[2019-08-18] MEDS ORDERED: ASPIRIN ENTERIC COATED 81 MG TABLET.DR. PO SCH (08:00)
[2019-08-18] MEDS: IPRATRPIUM/ALBUTEROL 0.5/2.5MG 3 ML NEBU. NEB SCH ×2 (08:17→12:07)
[2019-08-18] MEDS: HEPARIN 25,000UTS/500ML PREMIX 500 ML IV PRN (08:42)
--- NOTE | 2019-08-18 08:49 | PDOC ---
PROGRESS NOTES Chief Complaint Chief Complaint Acute bronchitis Emphysema. There is large bulla on the right. Left lower lobe infiltrate. HX ALCOHOL Use CHF PLAN ADMIT PULM CONSULT EMPERIC IV ANTIBIOTICS, ZITHROMAX, ROCEPHIN HEPARIN PROTOCOL FOR PE IV ZITHROMAX, ROCEPHIN GI PROPHYLAXIS BLOOD CULT O2 SUPPORT History of Present Illness History of Present Illness Mr Banda is a 54 yo M w/ PMHx Anxiety with depression who presents with cough and shortness of breath has been ongoing since Friday. Associated symptom of a mild runny nose. The patient denies fevers. Reports no pain Seen by pulmonology and cardiology. Had echo showing: Left ventricle systolic function is moderately to severely impaired. The Ejection Fraction is 25-30%. There is severe global hypokinesis of the left ventricle. There is a mitral ring in place which seems to be functioning normally. Had a cardiac catheterization last year that was relatively clean showing EF 45%. CTPA was negative for PE but showed LLL infiltrate and significant emphysema. He smoked 2.5ppd until he quit 12 years ago. After discussion about ETOH use he does drink at least 2 drinks per day. I have advised that with his CHF he should abstain from drinking and that the WHO recommends no more than 7 alcohol containing drinks per week in healthy patients. He was started on empiric antibiotics, azithromycin and rocephin, nebulizers and cardiology has recommended he start entresto based on his worsening EF and to f/u within the month. He will need outpatient PFTs as well once his respiratory status has improved. Antibiotics and nebulizers have improved his course and he and his wish for discharge home for Thanksgiving. Vitals Vitals Vital Signs Date Time Temp Pulse Resp B/P (MAP) Pulse Ox O2 Delivery O2 Flow Rate FiO2 08/18/19 08:18 97 Room Air 08/18/19 07:00 98.5 90 20 142/77 (98) 98.5 Physical Exam General: Alert, Oriented X3, Cooperative, No acute distress Heart: Regular rate, Normal S1, Normal S2 Abdomen: Normal bowel sounds, Soft Extremities: No cyanosis Labs LABS Laboratory Tests Test 08/17/19 13:00 08/17/19 14:11 08/17/19 21:30 08/18/19 04:40 White Blood Count 5.0 x10^3/uL (4.0-11.0) 4.4 x10^3/uL (4.0-11.0) Red Blood Count 5.16 x10^6/uL (4.30-5.70) 4.60 x10^6/uL (4.30-5.70) Hemoglobin 16.7 g/dL (13.0-17.5) 14.9 g/dL (13.0-17.5) Hematocrit 50.2 % (39.0-53.0) 45.1 % (39.0-53.0) Mean Corpuscular Volume 97 fL (79-100) 98 fL (79-100) Mean Corpuscular Hemoglobin 32 pg (25-35) 32 pg (25-35) Mean Corpuscular Hemoglobin Concent 33 g/dL (31-37) 33 g/dL (31-37) Red Cell Distribution Width 13.5 % (11.5-14.5) 13.6 % (11.5-14.5) Platelet Count 213 x10^3/uL (140-400) 172 x10^3/uL (140-400) Neutrophils (%) (Auto) 66 % (31-73) 37 % (31-73) Lymphocytes (%) (Auto) 15 % (24-48) 40 % (24-48) Monocytes (%) (Auto) 18 % (0-9) 20 % (0-9) Eosinophils (%) (Auto) 1 % (0-3) 2 % (0-3) Basophils (%) (Auto) 0 % (0-3) 1 % (0-3) Neutrophils # (Auto) 3.3 x10^3/uL (1.8-7.7) 1.6 x10^3/uL (1.8-7.7) Lymphocytes # (Auto) 0.8 x10^3/uL (1.0-4.8) 1.8 x10^3/uL (1.0-4.8) Monocytes # (Auto) 0.9 x10^3/uL (0.0-1.1) 0.9 x10^3/uL (0.0-1.1) Eosinophils # (Auto) 0.0 x10^3/uL (0.0-0.7) 0.1 x10^3/uL (0.0-0.7) Basophils # (Auto) 0.0 x10^3/uL (0.0-0.2) 0.0 x10^3/uL (0.0-0.2) Segmented Neutrophils % 53 % (35-66) Band Neutrophils % 15 % (0-9) Lymphocytes % 9 % (24-48) Atypical Lymphocytes % (Manual) 5 % (0-0) Monocytes % 15 % (0-10) Eosinophils % 1 % (0-5) Basophils % 2 % (0-3) Platelet Estimate Adequate (ADEQUATE) Prothrombin Time 12.2 SEC (11.7-14.0) Prothromb Time International Ratio 0.9 (0.8-1.1) Activated Partial Thromboplast Time 26 SEC (24-38) D-Dimer (Amy) 1.01 ug/mlFEU (0.00-0.50) Sodium Level 135 mmol/L (136-145) 138 mmol/L (136-145) Potassium Level 3.5 mmol/L (3.5-5.1) 3.7 mmol/L (3.5-5.1) Chloride Level 99 mmol/L (98-107) 104 mmol/L (98-107) Carbon Dioxide Level 24 mmol/L (21-32) 24 mmol/L (21-32) Anion Gap 12 (6-14) 10 (6-14) Blood Urea Nitrogen 14 mg/dL (8-26) 13 mg/dL (8-26) Creatinine 1.4 mg/dL (0.7-1.3) 1.1 mg/dL (0.7-1.3) Estimated GFR (Cockcroft-Gault) 52.4 69.2 BUN/Creatinine Ratio 10 (6-20) 12 (6-20) Glucose Level 182 mg/dL (70-99) 107 mg/dL (70-99) Calcium Level 8.7 mg/dL (8.5-10.1) 8.2 mg/dL (8.5-10.1) Magnesium Level 1.9 mg/dL (1.8-2.4) Total Bilirubin 0.3 mg/dL (0.2-1.0) 0.2 mg/dL (0.2-1.0) Aspartate Amino Transf (AST/SGOT) 24 U/L (15-37) 23 U/L (15-37) Alanine Aminotransferase (ALT/SGPT) 20 U/L (16-63) 18 U/L (16-63) Alkaline Phosphatase 73 U/L (46-116) 55 U/L (46-116) Creatine Kinase 94 U/L (39-308) Creatine Kinase MB (Mass) 1.9 ng/mL (0.0-3.6) Creatine Kinase MB Relative Index 2.0 % (0-4) Troponin I Quantitative < 0.017 ng/mL (0.000-0.055) SS-Gvi-Q-Type Natriuretic Peptide 471 pg/mL (0-124) Total Protein 7.1 g/dL (6.4-8.2) 5.7 g/dL (6.4-8.2) Albumin 3.0 g/dL (3.4-5.0) 2.3 g/dL (3.4-5.0) Albumin/Globulin Ratio 0.7 (1.0-1.7) 0.7 (1.0-1.7) Procalcitonin 0.11 ng/mL (0.00-0.10) Influenza Type A Antigen Negative (NEGATIVE) Influenza Type B Antigen Negative (NEGATIVE) Heparin Anti-Xa Act, Unfractionated 0.59 IU/mL (0.30-0.70) 0.44 IU/mL (0.30-0.70) Assessment and Plan Assessmemt and Plan Problems Medical Problems: (1) CONSTANTINO (acute kidney injury) Status: Acute (2) Pneumonia Status: Acute (3) Pulmonary emboli Status: Acute Comment Review of Relevant I have reviewed the following items benoit (where applicable) has been applied. Labs Laboratory Tests Test 08/17/19 13:00 08/17/19 14:11 08/17/19 21:30 08/18/19 04:40 White Blood Count 5.0 x10^3/uL (4.0-11.0) 4.4 x10^3/uL (4.0-11.0) Red Blood Count 5.16 x10^6/uL (4.30-5.70) 4.60 x10^6/uL (4.30-5.70) Hemoglobin 16.7 g/dL (13.0-17.5) 14.9 g/dL (13.0-17.5) Hematocrit 50.2 % (39.0-53.0) 45.1 % (39.0-53.0) Mean Corpuscular Volume 97 fL (79-100) 98 fL (79-100) Mean Corpuscular Hemoglobin 32 pg (25-35) 32 pg (25-35) Mean Corpuscular Hemoglobin Concent 33 g/dL (31-37) 33 g/dL (31-37) Red Cell Distribution Width 13.5 % (11.5-14.5) 13.6 % (11.5-14.5) Platelet Count 213 x10^3/uL (140-400) 172 x10^3/uL (140-400) Neutrophils (%) (Auto) 66 % (31-73) 37 % (31-73) Lymphocytes (%) (Auto) 15 % (24-48) 40 % (24-48) Monocytes (%) (Auto) 18 % (0-9) 20 % (0-9) Eosinophils (%) (Auto) 1 % (0-3) 2 % (0-3) Basophils (%) (Auto) 0 % (0-3) 1 % (0-3) Neutrophils # (Auto) 3.3 x10^3/uL (1.8-7.7) 1.6 x10^3/uL (1.8-7.7) Lymphocytes # (Auto) 0.8 x10^3/uL (1.0-4.8) 1.8 x10^3/uL (1.0-4.8) Monocytes # (Auto) 0.9 x10^3/uL (0.0-1.1) 0.9 x10^3/uL (0.0-1.1) Eosinophils # (Auto) 0.0 x10^3/uL (0.0-0.7) 0.1 x10^3/uL (0.0-0.7) Basophils # (Auto) 0.0 x10^3/uL (0.0-0.2) 0.0 x10^3/uL (0.0-0.2) Segmented Neutrophils % 53 % (35-66) Band Neutrophils % 15 % (0-9) Lymphocytes % 9 % (24-48) Atypical Lymphocytes % (Manual) 5 % (0-0) Monocytes % 15 % (0-10) Eosinophils % 1 % (0-5) Basophils % 2 % (0-3) Platelet Estimate Adequate (ADEQUATE) Prothrombin Time 12.2 SEC (11.7-14.0) Prothromb Time International Ratio 0.9 (0.8-1.1) Activated Partial Thromboplast Time 26 SEC (24-38) D-Dimer (Amy) 1.01 ug/mlFEU (0.00-0.50) Sodium Level 135 mmol/L (136-145) 138 mmol/L (136-145) Potassium Level 3.5 mmol/L (3.5-5.1) 3.7 mmol/L (3.5-5.1) Chloride Level 99 mmol/L (98-107) 104 mmol/L (98-107) Carbon Dioxide Level 24 mmol/L (21-32) 24 mmol/L (21-32) Anion Gap 12 (6-14) 10 (6-14) Blood Urea Nitrogen 14 mg/dL (8-26) 13 mg/dL (8-26) Creatinine 1.4 mg/dL (0.7-1.3) 1.1 mg/dL (0.7-1.3) Estimated GFR (Cockcroft-Gault) 52.4 69.2 BUN/Creatinine Ratio 10 (6-20) 12 (6-20) Glucose Level 182 mg/dL (70-99) 107 mg/dL (70-99) Calcium Level 8.7 mg/dL (8.5-10.1) 8.2 mg/dL (8.5-10.1) Magnesium Level 1.9 mg/dL (1.8-2.4) Total Bilirubin 0.3 mg/dL (0.2-1.0) 0.2 mg/dL (0.2-1.0) Aspartate Amino Transf (AST/SGOT) 24 U/L (15-37) 23 U/L (15-37) Alanine Aminotransferase (ALT/SGPT) 20 U/L (16-63) 18 U/L (16-63) Alkaline Phosphatase 73 U/L (46-116) 55 U/L (46-116) Creatine Kinase 94 U/L (39-308) Creatine Kinase MB (Mass) 1.9 ng/mL (0.0-3.6) Creatine Kinase MB Relative Index 2.0 % (0-4) Troponin I Quantitative < 0.017 ng/mL (0.000-0.055) EH-Zso-O-Type Natriuretic Peptide 471 pg/mL (0-124) Total Protein 7.1 g/dL (6.4-8.2) 5.7 g/dL (6.4-8.2) Albumin 3.0 g/dL (3.4-5.0) 2.3 g/dL (3.4-5.0) Albumin/Globulin Ratio 0.7 (1.0-1.7) 0.7 (1.0-1.7) Procalcitonin 0.11 ng/mL (0.00-0.10) Influenza Type A Antigen Negative (NEGATIVE) Influenza Type B Antigen Negative (NEGATIVE) Heparin Anti-Xa Act, Unfractionated 0.59 IU/mL (0.30-0.70) 0.44 IU/mL (0.30-0.70) Laboratory Tests Test 08/17/19 13:00 08/17/19 14:11 08/17/19 21:30 08/18/19 04:40 White Blood Count 5.0 x10^3/uL (4.0-11.0) 4.4 x10^3/uL (4.0-11.0) Red Blood Count 5.16 x10^6/uL (4.30-5.70) 4.60 x10^6/uL (4.30-5.70) Hemoglobin 16.7 g/dL (13.0-17.5) 14.9 g/dL (13.0-17.5) Hematocrit 50.2 % (39.0-53.0) 45.1 % (39.0-53.0) Mean Corpuscular Volume 97 fL (79-100) 98 fL (79-100) Mean Corpuscular Hemoglobin 32 pg (25-35) 32 pg (25-35) Mean Corpuscular Hemoglobin Concent 33 g/dL (31-37) 33 g/dL (31-37) Red Cell Distribution Width 13.5 % (11.5-14.5) 13.6 % (11.5-14.5) Platelet Count 213 x10^3/uL (140-400) 172 x10^3/uL (140-400) Neutrophils (%) (Auto) 66 % (31-73) 37 % (31-73) Lymphocytes (%) (Auto) 15 % (24-48) 40 % (24-48) Monocytes (%) (Auto) 18 % (0-9) 20 % (0-9) Eosinophils (%) (Auto) 1 % (0-3) 2 % (0-3) Basophils (%) (Auto) 0 % (0-3) 1 % (0-3) Neutrophils # (Auto) 3.3 x10^3/uL (1.8-7.7) 1.6 x10^3/uL (1.8-7.7) Lymphocytes # (Auto) 0.8 x10^3/uL (1.0-4.8) 1.8 x10^3/uL (1.0-4.8) Monocytes # (Auto) 0.9 x10^3/uL (0.0-1.1) 0.9 x10^3/uL (0.0-1.1) Eosinophils # (Auto) 0.0 x10^3/uL (0.0-0.7) 0.1 x10^3/uL (0.0-0.7) Basophils # (Auto) 0.0 x10^3/uL (0.0-0.2) 0.0 x10^3/uL (0.0-0.2) Segmented Neutrophils % 53 % (35-66) Band Neutrophils % 15 % (0-9) Lymphocytes % 9 % (24-48) Atypical Lymphocytes % (Manual) 5 % (0-0) Monocytes % 15 % (0-10) Eosinophils % 1 % (0-5) Basophils % 2 % (0-3) Platelet Estimate Adequate (ADEQUATE) Prothrombin Time 12.2 SEC (11.7-14.0) Prothromb Time International Ratio 0.9 (0.8-1.1) Activated Partial Thromboplast Time 26 SEC (24-38) D-Dimer (Amy) 1.01 ug/mlFEU (0.00-0.50) Sodium Level 135 mmol/L (136-145) 138 mmol/L (136-145) Potassium Level 3.5 mmol/L (3.5-5.1) 3.7 mmol/L (3.5-5.1) Chloride Level 99 mmol/L (98-107) 104 mmol/L (98-107) Carbon Dioxide Level 24 mmol/L (21-32) 24 mmol/L (21-32) Anion Gap 12 (6-14) 10 (6-14) Blood Urea Nitrogen 14 mg/dL (8-26) 13 mg/dL (8-26) Creatinine 1.4 mg/dL (0.7-1.3) 1.1 mg/dL (0.7-1.3) Estimated GFR (Cockcroft-Gault) 52.4 69.2 BUN/Creatinine Ratio 10 (6-20) 12 (6-20) Glucose Level 182 mg/dL (70-99) 107 mg/dL (70-99) Calcium Level 8.7 mg/dL (8.5-10.1) 8.2 mg/dL (8.5-10.1) Magnesium Level 1.9 mg/dL (1.8-2.4) Total Bilirubin 0.3 mg/dL (0.2-1.0) 0.2 mg/dL (0.2-1.0) Aspartate Amino Transf (AST/SGOT) 24 U/L (15-37) 23 U/L (15-37) Alanine Aminotransferase (ALT/SGPT) 20 U/L (16-63) 18 U/L (16-63) Alkaline Phosphatase 73 U/L (46-116) 55 U/L (46-116) Creatine Kinase 94 U/L (39-308) Creatine Kinase MB (Mass) 1.9 ng/mL (0.0-3.6) Creatine Kinase MB Relative Index 2.0 % (0-4) Troponin I Quantitative < 0.017 ng/mL (0.000-0.055) UG-Yzj-O-Type Natriuretic Peptide 471 pg/mL (0-124) Total Protein 7.1 g/dL (6.4-8.2) 5.7 g/dL (6.4-8.2) Albumin 3.0 g/dL (3.4-5.0) 2.3 g/dL (3.4-5.0) Albumin/Globulin Ratio 0.7 (1.0-1.7) 0.7 (1.0-1.7) Procalcitonin 0.11 ng/mL (0.00-0.10) Influenza Type A Antigen Negative (NEGATIVE) Influenza Type B Antigen Negative (NEGATIVE) Heparin Anti-Xa Act, Unfractionated 0.59 IU/mL (0.30-0.70) 0.44 IU/mL (0.30-0.70) Medications Current Medications Iohexol (Omnipaque 350 Mg/ml) 80 ml 1X ONCE IV Last administered on 08/17/19at 13:57; Start 08/17/19 at 14:00; Stop 08/17/19 at 14:01; Status DC Info (CONTRAST GIVEN -- Rx MONITORING) 1 each PRN DAILY PRN MC SEE COMMENTS; Start 08/17/19 at 14:00; Stop 08/19/19 at 13:59 Sodium Chloride 500 ml @ 500 mls/hr 1X STAT IV Last administered on 08/17/19at 14:11; Start 08/17/19 at 13:48; Stop 08/17/19 at 14:47; Status DC Ceftriaxone Sodium (Rocephin) 1 gm 1X STAT IVP Last administered on 08/17/19at 14:57; Start 08/17/19 at 14:39; Stop 08/17/19 at 14:44; Status DC Azithromycin 250 ml @ 250 mls/hr 1X STAT IV Last administered on 08/17/19at 15:04; Start 08/17/19 at 14:39; Stop 08/17/19 at 15:38; Status DC Sodium Chloride 1,000 ml @ 75 mls/hr 1X STAT IV Last administered on 08/17/19at 16:25; Start 08/17/19 at 14:39; Stop 08/18/19 at 03:58; Status DC Heparin Sodium (Porcine) (Heparin Sodium) 6,950 unit 1X ONCE IV Last administered on 08/17/19at 15:12; Start 08/17/19 at 14:45; Stop 08/17/19 at 14:46; Status DC Heparin Sodium/ Dextrose 500 ml @ 0 mls/hr CONT PRN IV PER PROTOCOL Last administered on 08/18/19at 08:42; Start 08/17/19 at 14:45 Heparin Sodium (Porcine) (Heparin Sodium) 2,600 unit PRN Q6HRS PRN IV FOR UFH LEVEL LESS THAN 0.2; Start 08/17/19 at 14:45 Heparin Sodium (Porcine) (Heparin Sodium) 1,300 unit PRN Q6HRS PRN IV FOR UFH LEVEL 0.2 - 0.29; Start 08/17/19 at 14:45 Ondansetron HCl (Zofran) 4 mg PRN Q8HRS PRN IV NAUSEA/VOMITING Last administered on 08/17/19at 15:14; Start 08/17/19 at 15:00; Stop 08/18/19 at 14:59 Morphine Sulfate (Morphine Sulfate) 2 mg PRN Q2HR PRN IV PAIN; Start 08/17/19 at 15:00; Stop 08/18/19 at 14:59 Albuterol/ Ipratropium (Duoneb) 3 ml RTQID NEB Last administered on 08/18/19at 08:17; Start 08/17/19 at 16:00; Stop 08/18/19 at 15:59 Ceftriaxone Sodium (Rocephin) 1 gm Q24H IVP ; Start 08/18/19 at 14:00 Azithromycin 250 ml @ 250 mls/hr DAILY08 IV ; Start 08/18/19 at 08:00; Status UNV Aspirin (Ecotrin) 81 mg DAILY08 PO Last administered on 08/18/19at 08:27; Start 08/18/19 at 08:00 Fluticasone Propionate (Flonase) 2 spray DAILY NS ; Start 08/18/19 at 09:00 Duloxetine HCl (Cymbalta) 60 mg DAILY PO Last administered on 08/17/19at 17:55; Start 08/17/19 at 18:00 Cetirizine HCl (ZyrTEC) 10 mg DAILY PO Last administered on 08/18/19at 08:27; Start 08/18/19 at 09:00 Sodium Chloride (Normal Saline Flush) 3 ml QSHIFT PRN IV AFTER MEDS AND BLOOD DRAWS; Start 08/17/19 at 16:00 Multivitamins 10 ml/Thiamine HCl 100 mg/Folic Acid 1 mg/Sodium Chloride 1,011.2 ml @ 125 mls/ hr 1X ONCE IV Last administered on 08/17/19at 17:55; Start 08/17/19 at 17:00; Stop 08/18/19 at 01:05; Status DC Ondansetron HCl (Zofran) 4 mg PRN Q4HRS PRN IV NAUSEA/VOMITING; Start 08/17/19 at 16:00 Acetaminophen (Tylenol) 650 mg PRN Q4HRS PRN PO TEMP OVER 100.4F OR MILD PAIN; Start 08/17/19 at 16:00 Al Hydroxide/Mg Hydroxide (Mylanta Plus Xs) 30 ml PRN DAILY PRN PO HEARTBURN / GAS; Start 08/17/19 at 16:00 Clonidine HCl (Catapres) 0.1 mg PRN Q6HRS PRN PO SBP>160 OR DBP>90; Start 08/17/19 at 16:00 Docusate Sodium (Colace) 100 mg PRN BID PRN PO CONSTIPATION; Start 08/17/19 at 16:00 Albuterol Sulfate (Ventolin Neb Soln) 2.5 mg PRN Q4HRS PRN NEB SHORTNESS OF BREATH; Start 08/17/19 at 16:00 Guaifenesin (Robitussin) 200 mg PRN Q4HRS PRN PO COUGH; Start 08/17/19 at 16:00 Lorazepam (Ativan) 0.5 mg PRN Q4HRS PRN PO ANXIETY / AGITATION Last administered on 08/17/19at 21:37; Start 08/17/19 at 16:00 Lorazepam (Ativan Inj) 2 mg PRN Q4HRS PRN IV ANXIETY / AGITATION; Start 08/17/19 at 16:00 Info (Anti-Coagulation Monitoring By Pharmacy) 1 each PRN DAILY PRN MC SEE COMMENTS; Start 08/17/19 at 16:15 Folic Acid (Folic Acid) 1 mg DAILY PO Last administered on 08/18/19at 08:27; Start 08/18/19 at 09:00 Thiamine Mononitrate (Vitamin B-1) 100 mg DAILY PO Last administered on 08/18/19at 08:27; Start 08/18/19 at 09:00 Lorazepam (Ativan) 4 mg PRN Q1HR PRN PO For CIWA 8-14; Start 08/17/19 at 16:00 Lorazepam (Ativan) 8 mg PRN Q1HR PRN PO For CIWA 15 or greater; Start 08/17/19 at 16:00 Lorazepam (Ativan Inj) 2 mg PRN Q1HR PRN IV For CIWA 8-14; Start 08/17/19 at 16:00 Lorazepam (Ativan Inj) 4 mg PRN Q1HR PRN IV For CIWA 15 or greater; Start 08/17/19 at 16:00 Haloperidol Lactate (Haldol Inj) 5 mg PRN Q4HRS PRN IVP Hallucinatns,Confusn,Delirium; Start 08/17/19 at 16:00 Diphenhydramine HCl (Benadryl) 25 mg PRN Q15MIN PRN IVP EPS symptoms 2'Haldol admin; Start 08/17/19 at 16:00 Clonidine HCl (Catapres) 0.1 mg PRN Q1HR PRN PO SBP > 180 or DBP > 100, MRX3; Start 08/17/19 at 16:00 Lorazepam (Ativan Inj) 2 mg PRN Q15MIN PRN IV SEE COMMENTS; Start 08/17/19 at 16:00; Status UNV Lorazepam (Ativan Inj) 4 mg PRN Q15MIN PRN IV SEE COMMENTS; Start 08/17/19 at 16:00; Status UNV Azithromycin 500 mg/Sodium Chloride 250 ml @ 250 mls/hr Q24H IV ; Start 08/18/19 at 14:00 Influenza Virus Vaccine Quadrival (Afluria Quad 2019-20 (3yr Up) Syringe) 0.5 ml ONCE ONCE VAX IM Last administered on 08/17/19at 21:23; Start 08/17/19 at 21:00; Stop 08/17/19 at 21:01; Status DC Propranolol HCl (Inderal) 20 mg DAILY PO Last administered on 08/17/19at 17:55; Start 08/17/19 at 18:00 Active Scripts Active Reported Toprol XL (Metoprolol Succinate) 50 Mg Tab.er.24h 25 Mg PO DAILY Comfort Allergy (Fexofenadine Hcl) 180 Mg Tablet 1 Tab PO DAILY Dymista Nasal Downey (Azelastine/Fluticasone) 23 Gm Downey.pump 1 Downey NS BID Aspirin Ec (Aspirin) 81 Mg Tablet. 1 Tab PO DAILY Fetzima (Levomilnacipran Hydrochloride) 80 Mg Cap.sa.24h 80 Mg PO Cymbalta (Duloxetine Hcl) 60 Mg Capsule. 1 Cap PO DAILY Vitals/I & O Vital Sign - Last 24 Hours 08/17/19 08/17/19 08/17/19 08/17/19 12:33 13:30 14:40 15:20 Temp 99.0 99.0 Pulse 106 110 98 112 Resp 20 24 20 B/P (MAP) 163/98 (119) 146/86 (106) 167/76 (106) 116/60 (78) Pulse Ox 99 97 98 96 O2 Delivery Room Air Room Air Room Air Room Air 08/17/19 08/17/19 08/17/19 08/17/19 15:58 16:26 16:40 16:49 Temp 98.3 98.3 Pulse 109 108 112 Resp 20 20 22 B/P (MAP) 162/92 (115) 157/85 (109) 142/90 (107) Pulse Ox 97 98 98 O2 Delivery Room Air Room Air Room Air Room Air 08/17/19 08/17/19 08/17/19 08/17/19 17:55 17:57 19:11 19:33 Temp 99.0 99.0 Pulse 112 105 Resp 18 B/P (MAP) 142/90 154/70 (98) Pulse Ox 95 95 O2 Delivery Room Air Room Air Room Air 08/17/19 08/17/19 08/18/19 08/18/19 20:00 22:31 02:56 07:00 Temp 98.4 98.5 98.5 98.4 98.5 98.5 Pulse 84 78 90 Resp 16 16 20 B/P (MAP) 136/85 (102) 136/73 (94) 142/77 (98) Pulse Ox 98 96 94 O2 Delivery Room Air Room Air Room Air Room Air 08/18/19 08:18 Pulse Ox 97 O2 Delivery Room Air Intake and Output 08/17/19 08/17/19 08/18/19 15:00 23:00 07:00 Intake Total 1050 ml 400 ml Balance 1050 ml 400 ml JUANA SMITH MD Aug 18, 2019 08:49
[2019-08-18] MEDS ORDERED: FLUTICASONE 50MCG/NASAL SPRAY 16GM BOTTLE. NS SCH (09:00)
[2019-08-18] MEDS ORDERED: THIAMINE 100 MG TABLET. PO SCH (09:00)
[2019-08-18] MEDS ORDERED: CETIRIZINE HCL 10 MG TABLET. PO SCH (09:00)
[2019-08-18] MEDS ORDERED: FOLIC ACID 1 MG TABLET. PO SCH (09:00)
--- NOTE | 2019-08-18 09:05 | NUR ---
SS following for discharge planning. SS reviewed pt chart. Pt is from home with spouse and is currently on room air. SS will continue to follow for discharge planning.
[2019-08-18] MEDS ORDERED: CONTRAST GIVEN. MC PRN (10:15)
[2019-08-18] MEDS ORDERED: IOHEXOL 350 MG/ML 100 ML VIAL. IV ONE (10:15)
--- NOTE | 2019-08-18 10:19 | CARD ---
MR#: [id number] Date of Study: 08/18/2019 Ordering Physician: JUAN PABLO FRANCISCO, Referring Physician: JUAN PABLO FRANCISCO Tech: Tiffany Montano RDCS APPROVED REPORT EXAM: Two-dimensional and M-mode echocardiogram with Doppler and color Doppler. Other Information Quality : Good INDICATION Mitral Valve Repair 2007, R/O Pericardial Effusion 2D DIMENSIONS RVDd2.8 (2.9-3.5cm)Left Atrium(2D)3.2 (1.6-4.0cm) IVSd1.2 (0.7-1.1cm)Aortic Root(2D)2.9 (2.0-3.7cm) LVDd5.7 (3.9-5.9cm)LVOT Diameter2.1 (1.8-2.4cm) PWd1.1 (0.7-1.1cm)LVDs4.9 (2.5-4.0cm) FS (%) 12.8 %SV42.8 ml LVEF(%)27.1 (>50%) Aortic Valve AoV Peak Bob.107.6cm/sAoV VTI19.4cm AO Peak GR.4.6mmHgLVOT Peak Bob.66.0cm/s LVOT VTI 11.73cmAO Mean GR.3mmHg ALEXANDREA (VMAX)2.32fu8PSA (VTI)2.07cm2 Mitral Valve MV E Ahvqklga24.9cm/sMV DECEL [id number] MV A Alopzdhw102.6cm/sMV E Mean Gr.2mmHg MV [id number]/A Ratio0.5 MVA (PHT)4.18cm2 TDI E/Lateral E'9.8E/Medial E'12.4 Pulmonary Vein S1 Uvwirnke07.8cm/sD2 Wvafmlqd30.1cm/s LEFT VENTRICLE The left ventricle is normal size. There is mild concentric left ventricular hypertrophy. Left ventri claire systolic function is moderately to severely impaired. The Ejection Fraction is 25-30%. There is s evere global hypokinesis of the left ventricle. Transmitral Doppler flow pattern is Grade I-abnormal relaxation pattern. RIGHT VENTRICLE The right ventricle is normal size. The right ventricular systolic function is normal. ATRIA The left atrium size is normal. The right atrium size is normal. The interatrial septum is intact wit h no evidence for an atrial septal defect or patent foramen ovale as noted on 2-D or Doppler imaging. AORTIC VALVE The aortic valve is sclerotic but opens well. Doppler and Color Flow revealed no significant aortic r egurgitation. There is no significant aortic valvular stenosis. MITRAL VALVE The mitral valve is mildly thickened. There is no evidence of mitral valve prolapse. There is no mitr al valve stenosis. Doppler and Color-flow revealed trace mitral regurgitation. There is a mitral ring in place which seems to be functioning normally. TRICUSPID VALVE The tricuspid valve is normal in structure and function. Doppler and Color Flow revealed no tricuspid valve regurgitation noted. There is no tricuspid valve stenosis. PULMONIC VALVE The pulmonic valve is not well visualized. Doppler and Color Flow revealed no pulmonic valvular regur gitation. There is no pulmonic valvular stenosis. GREAT VESSELS The aortic root is normal in size. The ascending aorta is normal in size. The IVC is normal in size a nd collapses >50% with inspiration. PERICARDIAL EFFUSION There is no evidence of significant pericardial effusion. Critical Notification Critical Value: No <Conclusion> Left ventricle systolic function is moderately to severely impaired. The Ejection Fraction is 25-30%. There is severe global hypokinesis of the left ventricle. There is a mitral ring in place which seems to be functioning normally. Signed by : Graeme Garrett, Electronically Approved : 08/18/2019 10:18:54
--- NOTE | 2019-08-18 10:33 | CONS ---
DATE OF CONSULTATION: PULMONARY CONSULTATION ATTENDING PHYSICIAN: Dr. Turpin. REASON FOR CONSULTATION: Abnormal CT chest. HISTORY OF PRESENT ILLNESS: The patient is a 54-year-old male who has been a smoker for 26 years up to 2 packs per day, he quit in 2007. He said since Friday, he started to feel like of a cold coming on, he had headache, he had body aches. He had some subjective fever as well. He had a cough, which was productive of clear sputum. He was starting to have some mild shortness of breath. As a result, he was seen in the Emergency Room. There was no evidence of any chest pain. A CT chest was reviewed by me. Radiologist felt that there may be questionable small PE in the lower lobes. However, there was motion artifact and I am not totally convinced of definite PE. There is evidence of emphysema. There is a large bulla in the right upper and mid chest. There is no definite consolidation seen. The patient states that he feels much better. He was started on heparin protocol. His breathing is better. He was also started on antibiotics as well. He never had any history of DVT or pulmonary embolism. The CT chest showed maybe mild infiltrate in the left lower lobe. Consultation requested for further evaluation and management. PAST MEDICAL HISTORY: Significant for history of heavy tobacco use, suspected COPD, history of anxiety, depression, history of mitral valve repair and a spinal fusion and lumbar discectomy. PAST SURGICAL HISTORY: As discussed above. SOCIAL HISTORY: Heavy alcohol use and heavy tobacco abuse, used to smoke 2 packs per day for 26 years before quitting. He has also done marijuana in the past and drinks 1-2 beers daily. REVIEW OF SYSTEMS: Twelve-point system obtained. Pertinent positives discussed in my history of present illness, otherwise noncontributory. All systems that were negative were reviewed as well. MEDICATIONS: All reviewed as listed in the MRAD. ALLERGIES: None to any medications. FAMILY HISTORY: Noncontributory to lungs. PHYSICAL EXAMINATION: VITAL SIGNS: Reviewed. He is afebrile, blood pressure stable, pulse ox 97% on room air. NECK: Supple. LUNGS: With occasional wheeze. CARDIOVASCULAR: With a regular rate. ABDOMEN: Soft, nontender. EXTREMITIES: With no pitting edema. LABORATORY DATA: Reviewed. BUN and creatinine now 13 and 1.1, which was 1.4 yesterday. Procalcitonin is 0.11. D-dimer 1.01. White cell count 4.4, hemoglobin 14.9 and platelets are 172. IMPRESSION: 1. Dyspnea secondary to acute exacerbation of chronic obstructive pulmonary disease/acute bronchitis and possible early left lower lobe pneumonia. 2. CTA chest was not convincing for definite pulmonary embolism. There was a motion artifact. The patient was started on heparin per protocol. D-dimer can be nonspecific. Before I subject him for 3-6 months of anticoagulation, I would like to repeat a CT angiogram again. 3. Acute kidney injury, which is now resolved. 4. History of alcoholism. 5. Giant bulla in the right upper lobe. RECOMMENDATIONS: 1. Discussed with the patient and the . We would like to repeat a CTA chest, and if there is no definite PE, then heparin can be stopped and he could go home. 2. The patient will benefit from PFTs as an outpatient. 3. Continue bronchodilators. 4. Continue antibiotics. 5. Counseling done regarding cessation of alcohol. The patient no longer smokes cigarettes. 6. Discussed with RN. We will follow along with you. ZAKIA ESTRADA MD DR: YOSSI/manolo JOB#: [id number] / [id number]
[2019-08-18 11:00] VITALS: BP 148/90
--- NOTE | 2019-08-18 11:50 | PDOC2 ---
KATHERINE LEVI DIRECTOR BIOLOGICS 08/18/19 1150: CARDIAC CONSULT DATE OF CONSULT Date of Consult DATE: 08/18/19 TIME: 11:41 REASON FOR CONSULT Reason for Consult: CHF REFERRING PHYSICIAN Referring Physician: Dr. Gu SOURCE Source: Chart review, Patient HISTORY OF PRESENT ILLNESS HISTORY OF PRESENT ILLNESS This is a 54 yo male, with a history of NICM, who presented secondary to shortness of breath and congestion/cough productive of yellow sputum for 3 days prior to arrival. No chest pain, palpitations, dizziness, diaphoresis, or nausea/vomiting. Initial CTA with PNA and concerns for possible PE. Heparin gtt was initiated. PAST MEDICAL HISTORY Cardiovascular: CHF, Valve insufficiency (s/p mitral valve repair ) Psych: Anxiety, Depression PAST SURGICAL HISTORY Past Surgical History: Other (mitral valve repair ) FAMILY HISTORY Family History: Hypertension SOCIAL HISTORY Smoke: Quit (2008) ALCOHOL: social Drugs: None Lives: with Family CURRENT MEDICATIONS CURRENT MEDICATIONS Current Medications Medications (Trade) Dose Ordered Sig/Cristobal Route PRN Reason Start Time Stop Time Status Last Admin Dose Admin Iohexol (Omnipaque 350 Mg/ml) 80 ml 1X ONCE IV 08/17/19 14:00 08/17/19 14:01 DC 08/17/19 13:57 Sodium Chloride 500 ml @ 500 mls/hr 1X STAT IV 08/17/19 13:48 08/17/19 14:47 DC 08/17/19 14:11 Ceftriaxone Sodium (Rocephin) 1 gm 1X STAT IVP 08/17/19 14:39 08/17/19 14:44 DC 08/17/19 14:57 Azithromycin 250 ml @ 250 mls/hr 1X STAT IV 08/17/19 14:39 08/17/19 15:38 DC 08/17/19 15:04 Sodium Chloride 1,000 ml @ 75 mls/hr 1X STAT IV 08/17/19 14:39 08/18/19 03:58 DC 08/17/19 16:25 Heparin Sodium (Porcine) (Heparin Sodium) 6,950 unit 1X ONCE IV 08/17/19 14:45 08/17/19 14:46 DC 08/17/19 15:12 Heparin Sodium/ Dextrose 500 ml @ 0 mls/hr CONT PRN IV PER PROTOCOL 08/17/19 14:45 08/18/19 08:42 Ondansetron HCl (Zofran) 4 mg PRN Q8HRS PRN IV NAUSEA/VOMITING 08/17/19 15:00 08/18/19 14:59 08/17/19 15:14 Albuterol/ Ipratropium (Duoneb) 3 ml RTQID NEB 08/17/19 16:00 08/18/19 15:59 08/18/19 08:17 Aspirin (Ecotrin) 81 mg DAILY08 PO 08/18/19 08:00 08/18/19 08:27 Duloxetine HCl (Cymbalta) 60 mg DAILY PO 08/17/19 18:00 08/18/19 08:47 DC 08/17/19 17:55 Cetirizine HCl (ZyrTEC) 10 mg DAILY PO 08/18/19 09:00 08/18/19 08:27 Multivitamins 10 ml/Thiamine HCl 100 mg/Folic Acid 1 mg/Sodium Chloride 1,011.2 ml @ 125 mls/ hr 1X ONCE IV 08/17/19 17:00 08/18/19 01:05 DC 08/17/19 17:55 Lorazepam (Ativan) 0.5 mg PRN Q4HRS PRN PO ANXIETY / AGITATION 08/17/19 16:00 08/17/19 21:37 Folic Acid (Folic Acid) 1 mg DAILY PO 08/18/19 09:00 08/18/19 08:27 Thiamine Mononitrate (Vitamin B-1) 100 mg DAILY PO 08/18/19 09:00 08/18/19 08:27 Influenza Virus Vaccine Quadrival (Afluria Quad 2019-20 (3yr Up) Syringe) 0.5 ml ONCE ONCE VAX IM 08/17/19 21:00 08/17/19 21:01 DC 08/17/19 21:23 Propranolol HCl (Inderal) 20 mg DAILY PO 08/17/19 18:00 08/18/19 08:46 DC 08/17/19 17:55 Iohexol (Omnipaque 350 Mg/ml) 100 ml 1X ONCE IV 08/18/19 10:15 08/18/19 10:16 DC 08/18/19 11:04 ALLERGIES ALLERGIES: Coded Allergies: [place] nut (Verified Allergy, Severe, ANAPHYLAXIS, 08/17/19) ROS Review of System 14 point ROS conducted with pertinent positives noted above in HPI PHYSICAL EXAM General: Alert, Oriented X3, Cooperative, No acute distress HEENT: Atraumatic, Mucous membr. moist/pink Lungs: Clear to auscultation, Normal air movement, Other (2/6 systolic murmur) Abdomen: Soft, No tenderness Extremities: No edema, Normal pulses Skin: No significant lesion Neuro: Normal speech, Sensation intact Psych/Mental Status: Mental status NL, Mood NL MUSCULOSKELETAL: Osteoarthritic changes both hands VITALS/I&O VITALS/I&O: Vital Signs Date Time Temp Pulse Resp B/P (MAP) Pulse Ox O2 Delivery O2 Flow Rate FiO2 08/18/19 08:18 97 Room Air 08/18/19 07:00 98.5 90 20 142/77 (98) 98.5 I & O 08/17/19 08/17/19 08/18/19 15:00 23:00 07:00 Intake Total 1050 ml 400 ml Balance 1050 ml 400 ml LABS Lab: Laboratory Tests Test 08/17/19 13:00 08/17/19 14:11 08/17/19 21:30 08/18/19 04:40 White Blood Count 5.0 x10^3/uL (4.0-11.0) 4.4 x10^3/uL (4.0-11.0) Red Blood Count 5.16 x10^6/uL (4.30-5.70) 4.60 x10^6/uL (4.30-5.70) Hemoglobin 16.7 g/dL (13.0-17.5) 14.9 g/dL (13.0-17.5) Hematocrit 50.2 % (39.0-53.0) 45.1 % (39.0-53.0) Mean Corpuscular Volume 97 fL (79-100) 98 fL (79-100) Mean Corpuscular Hemoglobin 32 pg (25-35) 32 pg (25-35) Mean Corpuscular Hemoglobin Concent 33 g/dL (31-37) 33 g/dL (31-37) Red Cell Distribution Width 13.5 % (11.5-14.5) 13.6 % (11.5-14.5) Platelet Count 213 x10^3/uL (140-400) 172 x10^3/uL (140-400) Neutrophils (%) (Auto) 66 % (31-73) 37 % (31-73) Lymphocytes (%) (Auto) 15 % (24-48) L 40 % (24-48) Monocytes (%) (Auto) 18 % (0-9) H 20 % (0-9) H Eosinophils (%) (Auto) 1 % (0-3) 2 % (0-3) Basophils (%) (Auto) 0 % (0-3) 1 % (0-3) Neutrophils # (Auto) 3.3 x10^3/uL (1.8-7.7) 1.6 x10^3/uL (1.8-7.7) L Lymphocytes # (Auto) 0.8 x10^3/uL (1.0-4.8) L 1.8 x10^3/uL (1.0-4.8) Monocytes # (Auto) 0.9 x10^3/uL (0.0-1.1) 0.9 x10^3/uL (0.0-1.1) Eosinophils # (Auto) 0.0 x10^3/uL (0.0-0.7) 0.1 x10^3/uL (0.0-0.7) Basophils # (Auto) 0.0 x10^3/uL (0.0-0.2) 0.0 x10^3/uL (0.0-0.2) Segmented Neutrophils % 53 % (35-66) Band Neutrophils % 15 % (0-9) H Lymphocytes % 9 % (24-48) L Atypical Lymphocytes % (Manual) 5 % (0-0) H Monocytes % 15 % (0-10) H Eosinophils % 1 % (0-5) Basophils % 2 % (0-3) Platelet Estimate Adequate (ADEQUATE) Prothrombin Time 12.2 SEC (11.7-14.0) Prothrombin Time INR 0.9 (0.8-1.1) Activated Partial Thromboplast Time 26 SEC (24-38) D-Dimer (Amy) 1.01 ug/mlFEU (0.00-0.50) H Sodium Level 135 mmol/L (136-145) L 138 mmol/L (136-145) Potassium Level 3.5 mmol/L (3.5-5.1) 3.7 mmol/L (3.5-5.1) Chloride Level 99 mmol/L (98-107) 104 mmol/L (98-107) Carbon Dioxide Level 24 mmol/L (21-32) 24 mmol/L (21-32) Anion Gap 12 (6-14) 10 (6-14) Blood Urea Nitrogen 14 mg/dL (8-26) 13 mg/dL (8-26) Creatinine 1.4 mg/dL (0.7-1.3) H 1.1 mg/dL (0.7-1.3) Estimated GFR (Cockcroft-Gault) 52.4 69.2 BUN/Creatinine Ratio 10 (6-20) 12 (6-20) Glucose Level 182 mg/dL (70-99) H 107 mg/dL (70-99) H Calcium Level 8.7 mg/dL (8.5-10.1) 8.2 mg/dL (8.5-10.1) L Magnesium Level 1.9 mg/dL (1.8-2.4) Total Bilirubin 0.3 mg/dL (0.2-1.0) 0.2 mg/dL (0.2-1.0) Aspartate Amino Transferase (AST) 24 U/L (15-37) 23 U/L (15-37) Alanine Aminotransferase (ALT) 20 U/L (16-63) 18 U/L (16-63) Alkaline Phosphatase 73 U/L (46-116) 55 U/L (46-116) Creatine Kinase 94 U/L (39-308) Creatine Kinase MB (Mass) 1.9 ng/mL (0.0-3.6) Creatine Kinase MB Relative Index 2.0 % (0-4) Troponin I Quantitative < 0.017 ng/mL (0.000-0.055) TA-Bdj-T-Type Natriuretic Peptide 471 pg/mL (0-124) H Total Protein 7.1 g/dL (6.4-8.2) 5.7 g/dL (6.4-8.2) L Albumin 3.0 g/dL (3.4-5.0) L 2.3 g/dL (3.4-5.0) L Albumin/Globulin Ratio 0.7 (1.0-1.7) L 0.7 (1.0-1.7) L Procalcitonin 0.11 ng/mL (0.00-0.10) H Influenza Type A Antigen Negative (NEGATIVE) Influenza Type B Antigen Negative (NEGATIVE) Heparin Anti-Xa Act, Unfractionated 0.59 IU/mL (0.30-0.70) 0.44 IU/mL (0.30-0.70) Laboratory Tests 08/17/19 13:00 08/18/19 04:40 Laboratory Tests 08/17/19 13:00 08/18/19 04:40 ECHOCARDIOGRAM ECHOCARDIOGRAM <Conclusion> Left ventricle systolic function is moderately to severely impaired. The Ejection Fraction is 25-30%. There is severe global hypokinesis of the left ventricle. There is a mitral ring in place which seems to be functioning normally. DATE: 08/18/19 1002 ASSESSMENT/PLAN ASSESSMENT/PLAN 1. Dyspnea in the setting of AE COPD and URI/bronchitis and possible PNA 2. Possible PE. On Heparin. CTA today to reassess for PE 3. NICM; LVEF 25-30% 4. Mild acute on chronic systolic HF; appears compensated 5. Valvular disease; s/p mitral valve repair. Echo shows normal function Recommendations Resume Toprol. D/c propranolol Start Entresto for HF optimization BMP next week. Supportive care Consider AICD implantation, for primary prevention of SCD, on an outpatient basis. May discharge from a CV standpoint and f/u in our office with Dr. Garrett after the [place] as scheduled. RADHA GARRETT MD 08/18/19 1511: CARDIAC CONSULT ASSESSMENT/PLAN ASSESSMENT/PLAN Patient seen and examined. Agree with above nurse practitioner note. Trae is a very pleasant 54-year-old man well-known to us from our office. He unfortunately had not started his Entresto therapy. I had a long discussion with the patient and his regarding the implications of nonischemic cardio myopathy, on-call use and the possible benefits of Entresto therapy. He is currently not inclined for ICD therapy. We will pursue continued aggressive medication therapy and determine if he needs an ICD at a later date. He will also discuss more with his . KATHERINE LEVI APRN Aug 18, 2019 11:50 RADHA GARRETT MD Aug 18, 2019 15:11
[2019-08-18] MEDS ORDERED: SACUBITRIL/VALSARTAN 24/26MG TABLET. PO SCH (12:00)
[2019-08-18] MEDS ORDERED: METOPROLOL SUCC 24HR ER 25 MG TAB.ER.24H. PO SCH (12:00)
[2019-08-18 12:20] VITALS: BP 148/90
--- NOTE | 2019-08-18 12:25 | RAD ---
Study: CT CHEST WITH CONTRAST - PULMONARY ANGIOGRAM History: Possible pulmonary embolism seen on the recently performed CT angiography of the chest. Follow-up to evaluate for actual pulmonary emboli versus artifact Comparison: CT PE protocol 08/17/2019 Technique: Helical CT of the chest performed after the administration of 99 cc Omnipaque 300 intravenous contrast and timed for angiographic evaluation of the pulmonary arteries per PE protocol. Coronal and sagittal 3D MIP reformations were obtained. One or more of the following individualized dose reduction techniques were utilized for this examination: 1. Automated exposure control 2. Adjustment of the mA and/or kV according to patient size 3. Use of iterative reconstruction technique. Findings: The current study is less affected by respiratory motion artifact relative to the recent comparison. No pulmonary embolism is seen throughout the lobar, segmental or adequately evaluated subsegmental pulmonary arteries. At the right lower lobe on image 121 series 3, a faintly seen focus of low attenuation may either be artifactual from volume averaging. No findings of right heart strain. Nonaneurysmal aorta. Patent great vessel origins. Calcific coronary artery disease. No pericardial effusion. Unchanged mild prominence of a subcarinal lymph node as well as mild prominence of a right hilar lymph node. Emphysematous changes of the lungs with a prominent bulla within the right upper lobe. Multifocal pleuroparenchymal scarring. Unchanged ill-defined infiltrate at the periphery of the left lower lobe. No newly seen suspicious pulmonary nodule. Intermittent mucous plugging within the small airways supplying the bilateral lower lobes and right middle lobe Status post median sternotomy. Unchanged rounded low-attenuation focus within the left hepatic lobe on image 145 series 3. Faint fatty infiltration along the falciform ligament. Intrarenal stone seen on the right measuring 3 mm. IMPRESSION: 1. The current study is less affected by motion artifact relative to the prior. No pulmonary embolism is seen throughout the main, lobar or segmental pulmonary arteries nor the adequately evaluated subsegmental pulmonary arteries. A tiny focus of low attenuation along a segmental vessel to the right lower lobe is felt more likely artifactual from volume averaging or a finding outside the vessel lumen. 2. As before, emphysematous changes of the lungs as well as scattered mucous plugging of a few small airways to the bilateral lower lobes and right middle lobe. Unchanged mild hazy infiltrate at the periphery of the left lower lobe which could represent chronic parenchymal lung changes though an atypical infectious process or sequela of aspiration could appear similar. 3. Additional unchanged findings as above. Electronically signed by: NEVILLE RODRIGUEZ MD (08/18/2019 12:22 PM) [facility]
[2019-08-18] MEDS ORDERED: DOXY100C2 PO (12:36)
[2019-08-18] MEDS ORDERED: IPRA4AER IH (12:36)
[2019-08-18] MEDS ORDERED: PRED20TA PO (12:36)
--- NOTE | 2019-08-18 13:08 | PDOC3 ---
Discharge Summary Visit Information Date of Admission: Aug 17, 2019 Date of Discharge: Aug 18, 2019 Admitting Diagnosis: LLL Pneumonia Final Diagnosis Problems Medical Problems: (1) CONSTANT[place] (acute kidney injury) Status: Acute (2) Pneumonia Status: Acute (3) Pulmonary emboli Status: Acute Brief Hospital Course Allergies Allergies Coded Allergies Type Severity Reaction Last Updated Verified [place] nut Allergy Severe ANAPHYLAXIS 08/17/19 Yes Vital Signs Vital Signs Date Time Temp Pulse Resp B/P (MAP) Pulse Ox O2 Delivery O2 Flow Rate FiO2 08/18/19 12:20 101 148/90 08/18/19 12:07 95 Room Air 08/18/19 11:00 98.1 20 98.1 Lab Results Laboratory Tests Test 08/17/19 13:00 08/17/19 14:11 08/17/19 21:30 08/18/19 04:40 White Blood Count 5.0 x10^3/uL (4.0-11.0) 4.4 x10^3/uL (4.0-11.0) Red Blood Count 5.16 x10^6/uL (4.30-5.70) 4.60 x10^6/uL (4.30-5.70) Hemoglobin 16.7 g/dL (13.0-17.5) 14.9 g/dL (13.0-17.5) Hematocrit 50.2 % (39.0-53.0) 45.1 % (39.0-53.0) Mean Corpuscular Volume 97 fL (79-100) 98 fL (79-100) Mean Corpuscular Hemoglobin 32 pg (25-35) 32 pg (25-35) Mean Corpuscular Hemoglobin Concent 33 g/dL (31-37) 33 g/dL (31-37) Red Cell Distribution Width 13.5 % (11.5-14.5) 13.6 % (11.5-14.5) Platelet Count 213 x10^3/uL (140-400) 172 x10^3/uL (140-400) Neutrophils (%) (Auto) 66 % (31-73) 37 % (31-73) Lymphocytes (%) (Auto) 15 % (24-48) 40 % (24-48) Monocytes (%) (Auto) 18 % (0-9) 20 % (0-9) Eosinophils (%) (Auto) 1 % (0-3) 2 % (0-3) Basophils (%) (Auto) 0 % (0-3) 1 % (0-3) Neutrophils # (Auto) 3.3 x10^3/uL (1.8-7.7) 1.6 x10^3/uL (1.8-7.7) Lymphocytes # (Auto) 0.8 x10^3/uL (1.0-4.8) 1.8 x10^3/uL (1.0-4.8) Monocytes # (Auto) 0.9 x10^3/uL (0.0-1.1) 0.9 x10^3/uL (0.0-1.1) Eosinophils # (Auto) 0.0 x10^3/uL (0.0-0.7) 0.1 x10^3/uL (0.0-0.7) Basophils # (Auto) 0.0 x10^3/uL (0.0-0.2) 0.0 x10^3/uL (0.0-0.2) Segmented Neutrophils % 53 % (35-66) Band Neutrophils % 15 % (0-9) Lymphocytes % 9 % (24-48) Atypical Lymphocytes % (Manual) 5 % (0-0) Monocytes % 15 % (0-10) Eosinophils % 1 % (0-5) Basophils % 2 % (0-3) Platelet Estimate Adequate (ADEQUATE) Prothrombin Time 12.2 SEC (11.7-14.0) Prothromb Time International Ratio 0.9 (0.8-1.1) Activated Partial Thromboplast Time 26 SEC (24-38) D-Dimer (Amy) 1.01 ug/mlFEU (0.00-0.50) Sodium Level 135 mmol/L (136-145) 138 mmol/L (136-145) Potassium Level 3.5 mmol/L (3.5-5.1) 3.7 mmol/L (3.5-5.1) Chloride Level 99 mmol/L (98-107) 104 mmol/L (98-107) Carbon Dioxide Level 24 mmol/L (21-32) 24 mmol/L (21-32) Anion Gap 12 (6-14) 10 (6-14) Blood Urea Nitrogen 14 mg/dL (8-26) 13 mg/dL (8-26) Creatinine 1.4 mg/dL (0.7-1.3) 1.1 mg/dL (0.7-1.3) Estimated GFR (Cockcroft-Gault) 52.4 69.2 BUN/Creatinine Ratio 10 (6-20) 12 (6-20) Glucose Level 182 mg/dL (70-99) 107 mg/dL (70-99) Calcium Level 8.7 mg/dL (8.5-10.1) 8.2 mg/dL (8.5-10.1) Magnesium Level 1.9 mg/dL (1.8-2.4) Total Bilirubin 0.3 mg/dL (0.2-1.0) 0.2 mg/dL (0.2-1.0) Aspartate Amino Transf (AST/SGOT) 24 U/L (15-37) 23 U/L (15-37) Alanine Aminotransferase (ALT/SGPT) 20 U/L (16-63) 18 U/L (16-63) Alkaline Phosphatase 73 U/L (46-116) 55 U/L (46-116) Creatine Kinase 94 U/L (39-308) Creatine Kinase MB (Mass) 1.9 ng/mL (0.0-3.6) Creatine Kinase MB Relative Index 2.0 % (0-4) Troponin I Quantitative < 0.017 ng/mL (0.000-0.055) RC-Pzp-T-Type Natriuretic Peptide 471 pg/mL (0-124) Total Protein 7.1 g/dL (6.4-8.2) 5.7 g/dL (6.4-8.2) Albumin 3.0 g/dL (3.4-5.0) 2.3 g/dL (3.4-5.0) Albumin/Globulin Ratio 0.7 (1.0-1.7) 0.7 (1.0-1.7) Procalcitonin 0.11 ng/mL (0.00-0.10) Influenza Type A Antigen Negative (NEGATIVE) Influenza Type B Antigen Negative (NEGATIVE) Heparin Anti-Xa Act, Unfractionated 0.59 IU/mL (0.30-0.70) 0.44 IU/mL (0.30-0.70) Laboratory Tests Test 08/17/19 14:11 08/17/19 21:30 08/18/19 04:40 Influenza Type A Antigen Negative (NEGATIVE) Influenza Type B Antigen Negative (NEGATIVE) Heparin Anti-Xa Act, Unfractionated 0.59 IU/mL (0.30-0.70) 0.44 IU/mL (0.30-0.70) White Blood Count 4.4 x10^3/uL (4.0-11.0) Red Blood Count 4.60 x10^6/uL (4.30-5.70) Hemoglobin 14.9 g/dL (13.0-17.5) Hematocrit 45.1 % (39.0-53.0) Mean Corpuscular Volume 98 fL (79-100) Mean Corpuscular Hemoglobin 32 pg (25-35) Mean Corpuscular Hemoglobin Concent 33 g/dL (31-37) Red Cell Distribution Width 13.6 % (11.5-14.5) Platelet Count 172 x10^3/uL (140-400) Neutrophils (%) (Auto) 37 % (31-73) Lymphocytes (%) (Auto) 40 % (24-48) Monocytes (%) (Auto) 20 % (0-9) Eosinophils (%) (Auto) 2 % (0-3) Basophils (%) (Auto) 1 % (0-3) Neutrophils # (Auto) 1.6 x10^3/uL (1.8-7.7) Lymphocytes # (Auto) 1.8 x10^3/uL (1.0-4.8) Monocytes # (Auto) 0.9 x10^3/uL (0.0-1.1) Eosinophils # (Auto) 0.1 x10^3/uL (0.0-0.7) Basophils # (Auto) 0.0 x10^3/uL (0.0-0.2) Sodium Level 138 mmol/L (136-145) Potassium Level 3.7 mmol/L (3.5-5.1) Chloride Level 104 mmol/L (98-107) Carbon Dioxide Level 24 mmol/L (21-32) Anion Gap 10 (6-14) Blood Urea Nitrogen 13 mg/dL (8-26) Creatinine 1.1 mg/dL (0.7-1.3) Estimated GFR (Cockcroft-Gault) 69.2 BUN/Creatinine Ratio 12 (6-20) Glucose Level 107 mg/dL (70-99) Calcium Level 8.2 mg/dL (8.5-10.1) Total Bilirubin 0.2 mg/dL (0.2-1.0) Aspartate Amino Transf (AST/SGOT) 23 U/L (15-37) Alanine Aminotransferase (ALT/SGPT) 18 U/L (16-63) Alkaline Phosphatase 55 U/L (46-116) Total Protein 5.7 g/dL (6.4-8.2) Albumin 2.3 g/dL (3.4-5.0) Albumin/Globulin Ratio 0.7 (1.0-1.7) Brief Hospital Course Mr Banda is a 54 yo M w/ PMHx Anxiety with depression who presents with cough and shortness of breath has been ongoing since Friday. Associated symptom of a mild runny nose. The patient denies fevers. Reports no pain Seen by pulmonology and cardiology. Had echo showing: Left ventricle systolic function is moderately to severely impaired. The Ejection Fraction is 25-30%. There is severe global hypokinesis of the left ventricle. There is a mitral ring in place which seems to be functioning normally. Had a cardiac catheterization last year that was relatively clean showing EF 45% . CTPA was negative for PE but showed LLL infiltrate and significant emphysema. He smoked 2.5ppd until he quit 12 years ago. After discussion about ETOH use he does drink at least 2 drinks per day. I have advised that with his CHF he should abstain from drinking and that the WHO recommends no more than 7 alcohol containing drinks per week in healthy patients. He was started on empiric antibiotics, azithromycin and rocephin, nebulizers and cardiology has recommended he start entresto based on his worsening EF and to f/u within the month. He will need outpatient PFTs as well once his respiratory status has improved. Antibiotics and nebulizers have improved his course and he and his wish for discharge home for Thanksgiving. Problem list Acute bronchitis Emphysema. There is large bulla on the right. Left lower lobe infiltrate. HX ALCOHOL Use CHF EF 20-25% Greater than 30 minutes spent on d/c Discharge Information Condition at Discharge: Improved Follow Up: Weeks Disposition/Orders: D/C to Home Scheduled Aspirin (Aspirin Ec) 81 Mg Tablet.dr, 1 TAB PO DAILY, #30 Ref 3 (Reported) Entered as Reported by: AFRICA MILLS on 02/19/18654 Last Action: Continued on 08/17/191552 by JUAN PABLO FRANCISCO MD Azelastine/Fluticasone (Dymista Nasal [place]) 23 Gm [place].pump, 1 SPRAY NS BID, #23 Ref 6 (Reported) Entered as Reported by: AFRICA MILLS on 02/19/18654 Last Action: Converted on 08/17/191552 by JUAN PABLO FRANCISCO MD Doxycycline Hyclate (Doxycycline Hyclate) 100 Mg Capsule, 1 CAP PO BID for Pneumonia for 7 Days, #14 Prescribed by: JUANA SMITH MD on 08/18/19 1236 Duloxetine Hcl (Cymbalta) 60 Mg Capsule.dr, 1 CAP PO DAILY, #90 Ref 3 (Reported) Entered as Reported by: AFRICA MILLS on 02/19/18654 Last Action: Converted on 08/17/191552 by JUAN PABLO FRANCISCO MD Fexofenadine Hcl (Comfort Allergy) 180 Mg Tablet, 1 TAB PO DAILY, #30 Ref 2 (Reported) Entered as Reported by: AFRICA MILLS on 02/19/18721 Last Action: Converted on 08/17/191552 by JUAN PABLO FRANCISCO MD Ipratropium/Albuterol Sulfate (Combivent Respimat Inhal) 4 Gm Aer.w.adap, 2 INH IH QID for COPD for 30 Days, #1 Ref 2 Prescribed by: JUANA SMITH MD on 08/18/19 1236 Metoprolol Succinate (Toprol XL) 50 Mg Tab.er.24h, 25 MG PO DAILY for FOR HYPERTENSION, (Reported) Entered as Reported by: JUAN PABLO VORA on 08/17/192144 Last Action: Continued on 08/18/191144 by KATHERINE LEVI APRN Prednisone (Prednisone) 20 Mg Tablet, 1 TAB PO DAILY for COPD for 5 Days, #5 Prescribed by: JUANA SMITH MD on 08/18/19 1236 Miscellaneous Medications Levomilnacipran Hydrochloride (Fetzima) 80 Mg Cap.sa.24h, 80 MG PO, (Reported) Entered as Reported by: AFRICA MILLS on 02/19/18 0655 Last Action: HELD on 08/17/19 1553 by MD LUIS SOTO CHRISTOPHER S MD Aug 18, 2019 13:08
[2019-08-18] MEDS ORDERED: cefTRIAXone IV Push 1 GM VIAL. IVP SCH (14:00)
[2019-08-18] MEDS ORDERED: AZITHROMYCIN 500 MG in IV NORMAL SALINE 250ML 250 ML IV SCH (14:00)
--- NOTE | 2019-08-18 14:37 | NUR ---
Discharge Note: ALESSANDRA ALEX Discharge instructions and discharge home medications reviewed with Patient and spouse a copy given. All questions have been answered and understanding verbalized. The following instructions and handouts were given: PE, Cardiac diet, sodium restriction, and Pneumonia. Discontinued iv lines and catheter intact. Patient discharged to home with self-care via private vehicle.
[2019-08-18] MEDS ORDERED: DULoxetine HCL 30 MG CAPSULE.DR PO SCH (17:00)
[2019-08-18] MEDS ORDERED: PROPRANOLOL 10 MG TABLET. PO SCH (17:00)
== END 2019-08-18 14:40 | disposition home or self-care (01) | DRG 175 ==
LOC: ER 12:24 → 2 NORTH 14:41
PROVIDERS: ADMIT Family Medicine; ATTEND Family Medicine
DX: I26.99 Other pulmonary embolism without acute cor pulmonale (principal); J18.9 Pneumonia, unspecified organism; I50.23 Acute on chronic systolic (congestive) heart failure; N17.9 Acute kidney failure, unspecified; I42.8 Other cardiomyopathies; F32.9 Major depressive disorder, single episode, unspecified; F41.9 Anxiety disorder, unspecified; J20.9 Acute bronchitis, unspecified; J43.2 Centrilobular emphysema; Z98.1 Arthrodesis status; Z87.891 Personal history of nicotine dependence; Z91.018 Allergy to other foods; Z82.49 Family history of ischemic heart disease and other diseases of the circulatory system
CPT/HCPCS: 36415; 71046; 71275; 80053; 82553; 83735; 83880; 84145; 84484; 85007; 85025; 85379; 85520; 85610; 85730; 87040; 87804; 90471; 90686; 93005; 93306; 94640; 94760; 96361; 96365; 96375; J0456; J0696; J1644; J2405; J7030; J7040; J7620; Q9967; 99285-25; G0378

== ENCOUNTER 2019-08-24 18:01 | Inpatient (IN) | payer BC ==
[~2019-08-24] VITALS: Ht 185.4 cm; Wt 84.9 kg
[~2019-08-24 18:01] MED LIST changes: +DOXY100C2 PO; +IPRA4AER IH; +METO50TA4 PO; +PRED20TA PO; +PROP20TA PO
[2019-08-24] MEDS ORDERED: LORazepam 0.5 MG TABLET PO ONE (19:15)
[2019-08-24] MEDS ORDERED: VANCOMYCIN PER PHARMACY MC PRN (19:15)
[2019-08-24] MEDS ORDERED: oxyCODONE/APAP 10/325 1 TAB TABLET PO ONE (19:15)
[2019-08-24 19:30] LABS: BASO # 0.1 x10^3/uL (0.0-0.2); BASO % 1 % (0-3); EOS # 0.1 x10^3/uL (0.0-0.7); EOS % 1 % (0-3); HEMATOCRIT 45.9 % (39.0-53.0); HEMOGLOBIN 15.3 g/dL (13.0-17.5); LYMPH % 21 % (24-48); MEAN CORPUSCULAR HEMOGLOBIN 32 pg (25-35); MEAN CORPUSCULAR HGB CONC 33 g/dL (31-37); MEAN CORPUSCULAR VOLUME 96 fL (79-100); MONO # 1.2 x10^3/uL (0.0-1.1); MONO % 13 % (0-9); NEUT # 6.2 x10^3/uL (1.8-7.7); NEUT % 65 % (31-73); PLATELET COUNT 359 x10^3/uL (140-400); RED BLOOD COUNT 4.78 x10^6/uL (4.30-5.70); RED CELL DISTRIBUTION WIDTH 13.1 % (11.5-14.5); WHITE BLOOD COUNT 9.6 x10^3/uL (4.0-11.0)
[2019-08-24 19:37] LABS: CALCIUM 9.3 mg/dL (8.5-10.1); CREATININE 1.1 mg/dL (0.7-1.3); GFR 69.2; POTASSIUM 4.3 mmol/L (3.5-5.1)
[2019-08-24 19:43] LABS: ALBUMIN 3.3 g/dL (3.4-5.0); ALBUMIN/GLOBULIN RATIO 0.9 (1.0-1.7); TOTAL BILIRUBIN 0.7 mg/dL (0.2-1.0); TOTAL PROTEIN 6.9 g/dL (6.4-8.2)
[2019-08-24] MEDS ORDERED: VANCOMYCIN 2 GM in IV NORMAL SALINE 500ML BAG 500 ML IV ONE (19:45)
[2019-08-24] MEDS ORDERED: ACETAMINOPHEN/CODEINE 300/30MG TABLET. PO PRN (20:00)
[2019-08-24] MEDS ORDERED: NICOTINE 21MG PATCH. TD PRN (20:00)
[2019-08-24] MEDS ORDERED: ACETAMINOPHEN 500 MG TABLET PO PRN (20:00)
[2019-08-24] MEDS ORDERED: ALBUTEROL SULFATE 2.5 MG/3 ML NEBU. NEB PRN (20:00)
[2019-08-24] MEDS ORDERED: ALPRAZolam 0.25 MG TABLET PO PRN (20:00)
[2019-08-24] MEDS ORDERED: ZOLPIDEM 5 MG TABLET. PO PRN (20:00)
--- NOTE | 2019-08-24 20:17 | PDOC1 ---
History and Physical Date of Admission Date of Admission DATE: 08/24/19 TIME: 20:11 Identification/Chief Complaint Chief Complaint RT arm, redness, swelling ,pain,recent admission here Source Source: Caregiver, Chart review, Patient History of Present Illness History of Present Illness Very pleasant but quite anxious white male, was just here 08/17 -08/18 for LLL PNA, emphysema, DANIEL, sent home on PO pred and PO doxy then now noticed rt arm swelling, red rash streaking up, clinically thrombophlebitis, no skin breaks, no palpable fluid collection US is being done at bedside as i see him, no fevers, the red streak is appreciable, agreeable to be admitted, Started on VAnc per pharmacy, Normal WBC but CRP 25. HE was a hard stick, had 2-3 iv sites on THAT INVOLVED ARM Past Medical History Cardiovascular: CHF, Valve insufficiency Psych: Anxiety, Depression Infectious disease: No pertinent hx Past Surgical History Past Surgical History: Other Family History Family History: Hypertension Social History Smoke: Quit ALCOHOL: social Drugs: None Current Medications Current Medications Current Medications Lorazepam (Ativan) 1 mg 1X ONCE PO Last administered on 08/24/19at 19:06; Start 08/24/19 at 19:15; Stop 08/24/19 at 19:16; Status DC Oxycodone/ Acetaminophen (Percocet 10/325) 1 tab 1X ONCE PO Last administered on 08/24/19at 19:06; Start 08/24/19 at 19:15; Stop 08/24/19 at 19:16; Status DC Vancomycin HCl (Vanco Per Pharmacy) 1 each PRN DAILY PRN MC SEE COMMENTS; Start 08/24/19 at 19:15 Vancomycin HCl 2 gm/Sodium Chloride 500 ml @ 250 mls/hr 1X ONCE IV Last administered on 08/24/19at 19:39; Start 08/24/19 at 19:45; Stop 08/24/19 at 21:44 Acetaminophen (Tylenol) 500 mg PRN Q6HRS PRN PO MILD PAIN / TEMP; Start 08/24/19 at 20:00 Acetaminophen/ Codeine Phosphate (Tylenol #3) 1 tab PRN Q6HRS PRN PO MODERATE PAIN; Start 08/24/19 at 20:00 Zolpidem Tartrate (Ambien) 5 mg PRN QHS PRN PO INSOMNIA; Start 08/24/19 at 20:00 Nicotine (Nicoderm Cq 21mg) 1 patch PRN DAILY PRN TD SMOKING CESSATION; Start 08/24/19 at 20:00 Albuterol Sulfate (Ventolin Neb Soln) 2.5 mg PRN Q4HRS PRN NEB SHORTNESS OF BREATH; Start 08/24/19 at 20:00 Alprazolam (Xanax) 0.25 mg PRN Q8HRS PRN PO ANXIETY / AGITATION; Start 08/24/19 at 20:00 Aspirin (Ecotrin) 81 mg DAILY PO ; Start 08/25/19 at 09:00 Metoprolol Succinate (Toprol Xl) 25 mg DAILY PO ; Start 08/25/19 at 09:00 Fluticasone Propionate (Flonase) 2 spray DAILY NS ; Start 08/25/19 at 09:00 Duloxetine HCl (Cymbalta) 60 mg DAILY PO ; Start 08/25/19 at 09:00 Cetirizine HCl (ZyrTEC) 10 mg DAILY PO ; Start 08/25/19 at 09:00 Albuterol/ Ipratropium (Duoneb) 3 ml RTQID NEB ; Start 08/24/19 at 20:00 Active Scripts Active Prednisone 20 Mg Tablet 1 Tab PO DAILY 5 Days Doxycycline Hyclate 100 Mg Capsule 1 Cap PO BID 7 Days Combivent Respimat Inhal (Ipratropium/Albuterol Sulfate) 4 Gm Aer.w.adap 2 Inh IH QID 30 Days Reported Toprol XL (Metoprolol Succinate) 50 Mg Tab.er.24h 25 Mg PO DAILY Comfort Allergy (Fexofenadine Hcl) 180 Mg Tablet 1 Tab PO DAILY Dymista Nasal [place] (Azelastine/Fluticasone) 23 Gm [place].pump 1 [place] NS BID Aspirin Ec (Aspirin) 81 Mg Tablet.dr 1 Tab PO DAILY Fetzima (Levomilnacipran Hydrochloride) 80 Mg Cap.sa.24h 80 Mg PO Cymbalta (Duloxetine Hcl) 60 Mg Capsule.dr 1 Cap PO DAILY Allergies Allergies: Coded Allergies: [place] nut (Verified Allergy, Severe, ANAPHYLAXIS, 08/17/19) ROS General: No: Chills, Night Sweats, Fatigue, Malaise, Appetite, Other PSYCHOLOGICAL ROS: No: Anxiety, Behavioral Disorder, Concentration difficultie, Decreased libido, Depression, Disorientation, Hallucinations, Hostility, Irritablity, Memory difficulties, Mood Swings, Obsessive thoughts, Physical abu se, Sexual abuse, Sleep disturbances, Suicidal ideation, Other Eyes: No Blurry vision, No Decreased vision, No Double vision, No Dry eyes, No Excessive tearing, No Eye Pain, No Itchy Eyes, No Loss of vision, No Photophobia, No Scotomata, No Uses contacts, No Uses glasses, No Other HEENT: No: Heacaches, Visual Changes, Hearing change, Nasal congestion, Nasal discharge, Oral lesions, Sinus pain, Sore Throat, Epistaxis, Sneezing, Snoring, Tinnitus, Vertigo, Vocal changes, Other ALLERGY AND IMMUNOLOGY: No: Hives, Insect Bite Sensitivity, Itchy/Watery Eyes, Nasal Congestion, Post Nasal Drip, Seasonal Allergies, Other Hematological and Lymphatic: No: Bleeding Problems, Blood Clots, Blood Transfusions, Brusing, Night Sweats, Pallor, Swollen Lymph Nodes, Other ENDOCRINE: No: Breast Changes, Galactorrhea, Hair Pattern Changes, Hot Flashes, Malaise/lethargy, Mood Swings, Palpitations, Polydipsia/polyuria, Skin Changes, Temperature Intolerance, Unexpected Weight Changes, Other Breast: No New/Changing Breast Lumps, No Nipple changes, No Nipple discharge, No Other Cardiovascular: No Chest Pain, No Palpitations, No Orthopnea, No Paroxysmal Noc. Dyspnea, No Edema, No Lt Headedness, No Other Gastrointestinal: No Nausea, No Vomiting, No Abdominal Pain, No Diarrhea, No Constipation, No Melena, No Hematochezia, No Other Genitourinary: No Dysuria, No Frequency, No Incontinence, No Hematuria, No Retention, No Discharge, No Urgency, No Pain, No Flank Pain, No Other, No , No , No , No , No , No , No Musculoskeletal: No Gait Disturbance, No Joint Pain, No Joint Stiffness, No Joint Swelling, No Muscle Pain, No Muscular Weakness, No Pain In:, No Swelling In:, No Other Neurological: No Behavorial Changes, No Bowel/Bladder ControlChng, No Confusion, No Dizziness, No Gait Disturbance, No Headaches, No Impaired Coord/balance, No Memory Loss, No Numbness/Tingling, No Seizures, No Speech Problems, No Tremors, No Visual Changes, No Weakness, No Other Physical Exam General: Alert, Oriented X3, Cooperative, No acute distress HEENT: Atraumatic, PERRLA, EOMI Lungs: Clear to auscultation, Normal air movement Heart: S1S2, RRR, no thrills, no rubs, no gallops, no murmurs Cardiovascular: S1, S2 Breasts: Normal, Rt breast nml w/o mass, Lt breast nml w/o mass, Nipples normal Abdomen: Normal bowel sounds, Soft, No tenderness, No hepatosplenomegaly, No masses Rectal Exam: not examined PELVIC: Nml ext genitalia Extremities: No clubbing, No cyanosis, Normal pulses Skin: No breakdown, Other (red rash, volar surface, streaking up the antecubital fossa to RT upper arm, no skin breaks, good pulses there) Neuro: Normal gait, Normal speech, Strength at 5/5 X4 ext, Normal tone, Sensation intact, Cranial nerves 3-12 NL, Reflexes 2+ Psych/Mental Status: Mental status NL, Mood NL Vitals Vitals Vital Signs Date Time Temp Pulse Resp B/P (MAP) Pulse Ox O2 Delivery O2 Flow Rate FiO2 08/24/19 19:06 18 98 Room Air 08/24/19 18:48 97.5 99 156/103 (120) 97.5 Labs Labs Laboratory Tests Test 08/24/19 19:14 White Blood Count 9.6 x10^3/uL (4.0-11.0) Red Blood Count 4.78 x10^6/uL (4.30-5.70) Hemoglobin 15.3 g/dL (13.0-17.5) Hematocrit 45.9 % (39.0-53.0) Mean Corpuscular Volume 96 fL (79-100) Mean Corpuscular Hemoglobin 32 pg (25-35) Mean Corpuscular Hemoglobin Concent 33 g/dL (31-37) Red Cell Distribution Width 13.1 % (11.5-14.5) Platelet Count 359 x10^3/uL (140-400) Neutrophils (%) (Auto) 65 % (31-73) Lymphocytes (%) (Auto) 21 % (24-48) Monocytes (%) (Auto) 13 % (0-9) Eosinophils (%) (Auto) 1 % (0-3) Basophils (%) (Auto) 1 % (0-3) Neutrophils # (Auto) 6.2 x10^3/uL (1.8-7.7) Lymphocytes # (Auto) 2.0 x10^3/uL (1.0-4.8) Monocytes # (Auto) 1.2 x10^3/uL (0.0-1.1) Eosinophils # (Auto) 0.1 x10^3/uL (0.0-0.7) Basophils # (Auto) 0.1 x10^3/uL (0.0-0.2) Sodium Level 138 mmol/L (136-145) Potassium Level 4.3 mmol/L (3.5-5.1) Chloride Level 103 mmol/L (98-107) Carbon Dioxide Level 27 mmol/L (21-32) Anion Gap 8 (6-14) Blood Urea Nitrogen 22 mg/dL (8-26) Creatinine 1.1 mg/dL (0.7-1.3) Estimated GFR (Cockcroft-Gault) 69.2 BUN/Creatinine Ratio 20 (6-20) Glucose Level 110 mg/dL (70-99) Lactic Acid Level 0.8 mmol/L (0.4-2.0) Calcium Level 9.3 mg/dL (8.5-10.1) Total Bilirubin 0.7 mg/dL (0.2-1.0) Aspartate Amino Transf (AST/SGOT) 22 U/L (15-37) Alanine Aminotransferase (ALT/SGPT) 31 U/L (16-63) Alkaline Phosphatase 72 U/L (46-116) C-Reactive Protein, Quantitative 25.6 mg/L (0-3.3) Total Protein 6.9 g/dL (6.4-8.2) Albumin 3.3 g/dL (3.4-5.0) Albumin/Globulin Ratio 0.9 (1.0-1.7) Laboratory Tests Test 08/24/19 19:14 White Blood Count 9.6 x10^3/uL (4.0-11.0) Red Blood Count 4.78 x10^6/uL (4.30-5.70) Hemoglobin 15.3 g/dL (13.0-17.5) Hematocrit 45.9 % (39.0-53.0) Mean Corpuscular Volume 96 fL (79-100) Mean Corpuscular Hemoglobin 32 pg (25-35) Mean Corpuscular Hemoglobin Concent 33 g/dL (31-37) Red Cell Distribution Width 13.1 % (11.5-14.5) Platelet Count 359 x10^3/uL (140-400) Neutrophils (%) (Auto) 65 % (31-73) Lymphocytes (%) (Auto) 21 % (24-48) Monocytes (%) (Auto) 13 % (0-9) Eosinophils (%) (Auto) 1 % (0-3) Basophils (%) (Auto) 1 % (0-3) Neutrophils # (Auto) 6.2 x10^3/uL (1.8-7.7) Lymphocytes # (Auto) 2.0 x10^3/uL (1.0-4.8) Monocytes # (Auto) 1.2 x10^3/uL (0.0-1.1) Eosinophils # (Auto) 0.1 x10^3/uL (0.0-0.7) Basophils # (Auto) 0.1 x10^3/uL (0.0-0.2) Sodium Level 138 mmol/L (136-145) Potassium Level 4.3 mmol/L (3.5-5.1) Chloride Level 103 mmol/L (98-107) Carbon Dioxide Level 27 mmol/L (21-32) Anion Gap 8 (6-14) Blood Urea Nitrogen 22 mg/dL (8-26) Creatinine 1.1 mg/dL (0.7-1.3) Estimated GFR (Cockcroft-Gault) 69.2 BUN/Creatinine Ratio 20 (6-20) Glucose Level 110 mg/dL (70-99) Lactic Acid Level 0.8 mmol/L (0.4-2.0) Calcium Level 9.3 mg/dL (8.5-10.1) Total Bilirubin 0.7 mg/dL (0.2-1.0) Aspartate Amino Transf (AST/SGOT) 22 U/L (15-37) Alanine Aminotransferase (ALT/SGPT) 31 U/L (16-63) Alkaline Phosphatase 72 U/L (46-116) C-Reactive Protein, Quantitative 25.6 mg/L (0-3.3) Total Protein 6.9 g/dL (6.4-8.2) Albumin 3.3 g/dL (3.4-5.0) Albumin/Globulin Ratio 0.9 (1.0-1.7) VTE Prophylaxis Ordered VTE Prophylaxis Devices: Yes VTE Pharmacological Prophylaxi: Yes Assessment/Plan Assessment/Plan RT arm thrombophlebitis, recent IV site, peripheral - started on vanc Recnet LLL pNA - finsihed po pred, on doxy at home Elevated CRP DANIEL, NOS - cont xanax Emphysema hx - ex smoker PLAN: 2MN VAnc, non monitord bed ok ok to eat Await US results COnt home meds Agree with IV vanc Full code Seen at ER cool compress maybe KYUNG LOWE MD Aug 24, 2019 20:17
[2019-08-24] MEDS: IPRATRPIUM/ALBUTEROL 0.5/2.5MG 3 ML NEBU. NEB SCH (20:21)
--- NOTE | 2019-08-24 20:51 | RAD ---
VENOUS UPPER EXTREMITY RIGHT History: Arm swelling and pain. Comparison: None. Procedure: Color flow Doppler, Doppler spectral analysis, and 2D images are obtained with and without compression in the jugular vein, subclavian vein, axillary vein, brachial vein, radial vein, ulnar vein, and basilic and cephalic veins. Findings: Right axillary vein thrombosis. Right basilic vein thrombosis from the upper arm to the mid forearm. Cephalic vein thrombosis from the forearm to the wrist. Thrombus within the upper cephalic vein. Right internal jugular, subclavian, brachial, radial and ulnar veins are patent. IMPRESSION: 1. Right axillary vein deep vein thrombosis. 2. Basilic and cephalic superficial vein thrombosis. FOR INTERNAL CODING PURPOSES Critical result: Findings discussed with HORACIO FITZGERALD at 08/24/2019 8:48 PM. RESULT CODE: (C) Electronically signed by: Kristopher Antony DO (08/24/2019 8:49 PM) [facility]
[2019-08-24] MEDS ORDERED: HEPARIN for IV BOLUS 10,000 UNIT/10 ML VIAL. IV ONE (21:00)
[2019-08-24] MEDS ORDERED: HEPARIN 25,000UTS/500ML PREMIX 500 ML IV PRN (21:00)
[2019-08-24] MEDS: CELECOXIB 100 MG CAPSULE. PO SCH (21:00)
[2019-08-24] MEDS ORDERED: HEPARIN for IV BOLUS 10,000 UNIT/10 ML VIAL. IV PRN ×2 (21:00)
[2019-08-24] MEDS ORDERED: APIXABAN 5 MG TABLET. PO ONE (21:15)
--- NOTE | 2019-08-24 21:16 | PHYS DOC ---
Past Medical History Past Medical History: Anxiety, Depression Past Surgical History: Other Additional Past Surgical Histo: MITRAL VALVE REPAIR,SPINAL FUSION, lumbar discectomy Alcohol Use: Heavy Drug Use: Marijuana Adult General Chief Complaint Chief Complaint: UPPER EXTREMITY SWELLING HPI HPI Patient is a 54 year old male recently admitted to this facility for left lower lobe pneumonia and COPD currently on prednisone and doxycycline who presents with tenderness swelling over right arm and distribution of the IV access sites. Patient states right arm swelling began 2 days ago and has gradually progressed and is now extending up a small arm. No fever chills, nausea vomiting or sweats. States he is compliant with antibiotics. He is quite anxious. History of spinal stenosis and mitral valve repair. Review of Systems Review of Systems ROS as per HPI All other systems were reviewed and found to be within normal limits, except as documented in this note. Current Medications Current Medications Current Medications Medications (Trade) Dose Ordered Sig/Cristobal Start Time Stop Time Status Last Admin Dose Admin Acetaminophen (Tylenol) 500 mg PRN Q6HRS PRN 08/24/19 20:00 Acetaminophen/ Codeine Phosphate (Tylenol #3) 1 tab PRN Q6HRS PRN 08/24/19 20:00 Albuterol Sulfate (Ventolin Neb Soln) 2.5 mg PRN Q4HRS PRN 08/24/19 20:00 Albuterol/ Ipratropium (Duoneb) 3 ml RTQID 08/24/19 20:00 08/24/19 20:21 3 ML Alprazolam (Xanax) 0.25 mg PRN Q8HRS PRN 08/24/19 20:00 Apixaban (Eliquis) 10 mg 1X ONCE 08/24/19 21:15 08/24/19 21:16 Aspirin (Ecotrin) 81 mg DAILY 08/25/19 09:00 Celecoxib (CeleBREX) 100 mg BID 08/24/19 21:00 Cetirizine HCl (ZyrTEC) 10 mg DAILY 08/25/19 09:00 Duloxetine HCl (Cymbalta) 60 mg DAILY 08/25/19 09:00 Fluticasone Propionate (Flonase) 2 spray DAILY 08/25/19 09:00 Heparin Sodium (Porcine) (Heparin Sodium) 1,350 unit PRN Q6HRS PRN 08/24/19 21:00 08/24/19 21:01 DC Heparin Sodium/ Dextrose 500 ml @ 0 mls/hr CONT PRN 08/24/19 21:00 08/24/19 21:01 DC Lorazepam (Ativan) 1 mg 1X ONCE 08/24/19 19:15 08/24/19 19:16 DC 08/24/19 19:06 1 MG Metoprolol Succinate (Toprol Xl) 25 mg DAILY 08/25/19 09:00 Nicotine (Nicoderm Cq 21mg) 1 patch PRN DAILY PRN 08/24/19 20:00 Oxycodone/ Acetaminophen (Percocet 10/325) 1 tab 1X ONCE 08/24/19 19:15 08/24/19 19:16 DC 08/24/19 19:06 1 TAB Vancomycin HCl (Vanco Per Pharmacy) 1 each PRN DAILY PRN 08/24/19 19:15 Vancomycin HCl 2 gm/Sodium Chloride 500 ml @ 250 mls/hr 1X ONCE 08/24/19 19:45 08/24/19 21:44 08/24/19 19:39 250 MLS/HR Zolpidem Tartrate (Ambien) 5 mg PRN QHS PRN 08/24/19 20:00 Allergies Allergies Allergies Coded Allergies Type Severity Reaction Last Updated Verified [place] nut Allergy Severe ANAPHYLAXIS 08/17/19 Yes Physical Exam Physical Exam Constitutional: Well developed, well nourished, no acute distress, non-toxic appearance. [] HENT: Normocephalic, atraumatic, bilateral external ears normal, oropharynx moist, nose normal. [] Eyes: PERRLA, EOMI, conjunctiva normal, no discharge. [] Neck: Normal range of motion, no tenderness. [] Cardiovascular:Heart rate regular rhythm, no murmur [] Lungs & Thorax: Bilateral breath sounds clear to auscultation [] Abdomen: Bowel sounds normal, soft, no tenderness. [] Skin: Thombophlebitis of right arm extending from forearm to proximal humerus. [] Back: No tenderness. [] Extremities: No tenderness. [] Neurologic: Alert and oriented X 3, normal motor function, normal sensory function, no focal deficits noted. [] Psychologic: Affect normal, judgement normal, mood normal. [] Current Patient Data Vital Signs Vital Signs Date Time Temp Pulse Resp B/P (MAP) Pulse Ox O2 Delivery O2 Flow Rate FiO2 08/24/19 20:22 96 Room Air 08/24/19 19:06 18 08/24/19 18:48 97.5 99 156/103 (120) 97.5 Lab Values Laboratory Tests Test 08/24/19 19:14 White Blood Count 9.6 x10^3/uL (4.0-11.0) Red Blood Count 4.78 x10^6/uL (4.30-5.70) Hemoglobin 15.3 g/dL (13.0-17.5) Hematocrit 45.9 % (39.0-53.0) Mean Corpuscular Volume 96 fL (79-100) Mean Corpuscular Hemoglobin 32 pg (25-35) Mean Corpuscular Hemoglobin Concent 33 g/dL (31-37) Red Cell Distribution Width 13.1 % (11.5-14.5) Platelet Count 359 x10^3/uL (140-400) Neutrophils (%) (Auto) 65 % (31-73) Lymphocytes (%) (Auto) 21 % (24-48) L Monocytes (%) (Auto) 13 % (0-9) H Eosinophils (%) (Auto) 1 % (0-3) Basophils (%) (Auto) 1 % (0-3) Neutrophils # (Auto) 6.2 x10^3/uL (1.8-7.7) Lymphocytes # (Auto) 2.0 x10^3/uL (1.0-4.8) Monocytes # (Auto) 1.2 x10^3/uL (0.0-1.1) H Eosinophils # (Auto) 0.1 x10^3/uL (0.0-0.7) Basophils # (Auto) 0.1 x10^3/uL (0.0-0.2) Sodium Level 138 mmol/L (136-145) Potassium Level 4.3 mmol/L (3.5-5.1) Chloride Level 103 mmol/L (98-107) Carbon Dioxide Level 27 mmol/L (21-32) Anion Gap 8 (6-14) Blood Urea Nitrogen 22 mg/dL (8-26) Creatinine 1.1 mg/dL (0.7-1.3) Estimated GFR (Cockcroft-Gault) 69.2 BUN/Creatinine Ratio 20 (6-20) Glucose Level 110 mg/dL (70-99) H Lactic Acid Level 0.8 mmol/L (0.4-2.0) Calcium Level 9.3 mg/dL (8.5-10.1) Total Bilirubin 0.7 mg/dL (0.2-1.0) Aspartate Amino Transferase (AST) 22 U/L (15-37) Alanine Aminotransferase (ALT) 31 U/L (16-63) Alkaline Phosphatase 72 U/L (46-116) C-Reactive Protein, Quantitative 25.6 mg/L (0-3.3) H Total Protein 6.9 g/dL (6.4-8.2) Albumin 3.3 g/dL (3.4-5.0) L Albumin/Globulin Ratio 0.9 (1.0-1.7) L Laboratory Tests 08/24/19 19:14 Laboratory Tests 08/24/19 19:14 EKG EKG [] Radiology/Procedures Radiology/Procedures [Venous doppler US: DVT involving right axillary pain with extensive involvement of superficial veins.] Course & Med Decision Making Course & Med Decision Making Pertinent Labs and Imaging studies reviewed. (See chart for details) [DVT of right upper extremity with phlebitis. Patient denies chest pain shortness of breath. IV antibiotics and Eliquis given. Will admit to hospitalist service.] Dragon Disclaimer Dragon Disclaimer This electronic medical record was generated, in whole or in part, using a voice recognition dictation system. Departure Departure Impression: Primary Impression: Right arm cellulitis Additional Impression: DVT of axillary vein, acute right Disposition: ADMITTED INPATIENT Condition: STABLE Referrals: ARTUR NGO (PCP) Problem Qualifiers HORACIO FITZGERALD DO Aug 24, 2019 21:15
--- NOTE | 2019-08-24 21:27 | NUR ---
Pharmacy Vancomycin Dosing Note S: Consulted to monitor and dose vancomycin started 08/24/19. O: ALESSANDRA ALEX is a 54 year old M with Cellulitis LABS: Last BUN: 22 Last Creatinine: 1.1 Creatinine Clearance: 88 mL/min Last WBC: 9.6 Tmax (past 24 hours): AFEBRILE Vancomycin Dosing: Dosing Weight: Actual Target Trough: 10-20 A: Based on: VANCO dosing guidelines P: 1. Begin Vancomycin 2000mg LOAD dose, then 1500 mg IV q12h 2. Follow up Trough level on 08/25/19 at 1930 3. Pharmacy will continue to monitor, follow and adjust therapy as needed. FABIOLA MAYA, [facility], 08/24/19 [id number]
[2019-08-24 22:47] VITALS: BP 121/63
[2019-08-25 03:10] VITALS: BP 113/68
[2019-08-25 07:15] VITALS: BP 135/79
[2019-08-25] MEDS ORDERED: VANCOMYCIN 1.5 GM in IV NORMAL SALINE 500ML BAG 500 ML IV SCH (08:00)
[2019-08-25] MEDS: IPRATRPIUM/ALBUTEROL 0.5/2.5MG 3 ML NEBU. NEB SCH ×2 (08:22→12:42)
[2019-08-25] MEDS ORDERED: FLUTICASONE 50MCG/NASAL SPRAY 16GM BOTTLE. NS SCH (09:00)
[2019-08-25] MEDS: CELECOXIB 100 MG CAPSULE. PO SCH (09:00)
[2019-08-25] MEDS ORDERED: ASPIRIN ENTERIC COATED 81 MG TABLET.DR. PO SCH (09:00)
[2019-08-25] MEDS ORDERED: DULoxetine HCL 30 MG CAPSULE.DR PO SCH (09:00)
[2019-08-25] MEDS ORDERED: METOPROLOL SUCC 24HR ER 25 MG TAB.ER.24H. PO SCH (09:00)
[2019-08-25] MEDS ORDERED: CETIRIZINE HCL 10 MG TABLET. PO SCH (09:00)
[2019-08-25 11:00] VITALS: BP 108/70
--- NOTE | 2019-08-25 13:24 | PDOC ---
[facility] [facility] PROGRESS NOTE Chief Complaint Chief Complaint RT arm, redness, swelling, pain recent admission here DVT History of Present Illness History of Present Illness 08/25 Pt seen and examined Pt resting comfortably Pt ok with DC plan Vitals/I&O Vitals/I&O: Vital Signs Date Time Temp Pulse Resp B/P (MAP) Pulse Ox O2 Delivery O2 Flow Rate FiO2 08/25/19 11:00 97.7 84 20 108/70 (83) 97 Room Air 97.7 I & O 08/24/19 08/24/19 08/25/19 15:00 23:00 07:00 Intake Total 500 ml 100 ml Balance 500 ml 100 ml Physical Exam General: Alert, Oriented X3, Cooperative, No acute distress Heart: Regular rate, Normal S1, Normal S2 Lungs: Clear Abdomen: Normal bowel sounds, Soft, No tenderness, No hepatosplenomegaly, No masses Extremities: No clubbing, No cyanosis, Normal pulses Skin: No breakdown, Other (red rash, volar surface, streaking up the antecubital fossa to RT upper arm, no skin breaks, good pulses there) Labs Labs: Laboratory Tests Test 08/24/19 19:14 White Blood Count 9.6 x10^3/uL (4.0-11.0) Red Blood Count 4.78 x10^6/uL (4.30-5.70) Hemoglobin 15.3 g/dL (13.0-17.5) Hematocrit 45.9 % (39.0-53.0) Mean Corpuscular Volume 96 fL (79-100) Mean Corpuscular Hemoglobin 32 pg (25-35) Mean Corpuscular Hemoglobin Concent 33 g/dL (31-37) Red Cell Distribution Width 13.1 % (11.5-14.5) Platelet Count 359 x10^3/uL (140-400) Neutrophils (%) (Auto) 65 % (31-73) Lymphocytes (%) (Auto) 21 % (24-48) Monocytes (%) (Auto) 13 % (0-9) Eosinophils (%) (Auto) 1 % (0-3) Basophils (%) (Auto) 1 % (0-3) Neutrophils # (Auto) 6.2 x10^3/uL (1.8-7.7) Lymphocytes # (Auto) 2.0 x10^3/uL (1.0-4.8) Monocytes # (Auto) 1.2 x10^3/uL (0.0-1.1) Eosinophils # (Auto) 0.1 x10^3/uL (0.0-0.7) Basophils # (Auto) 0.1 x10^3/uL (0.0-0.2) Sodium Level 138 mmol/L (136-145) Potassium Level 4.3 mmol/L (3.5-5.1) Chloride Level 103 mmol/L (98-107) Carbon Dioxide Level 27 mmol/L (21-32) Anion Gap 8 (6-14) Blood Urea Nitrogen 22 mg/dL (8-26) Creatinine 1.1 mg/dL (0.7-1.3) Estimated GFR (Cockcroft-Gault) 69.2 BUN/Creatinine Ratio 20 (6-20) Glucose Level 110 mg/dL (70-99) Lactic Acid Level 0.8 mmol/L (0.4-2.0) Calcium Level 9.3 mg/dL (8.5-10.1) Total Bilirubin 0.7 mg/dL (0.2-1.0) Aspartate Amino Transf (AST/SGOT) 22 U/L (15-37) Alanine Aminotransferase (ALT/SGPT) 31 U/L (16-63) Alkaline Phosphatase 72 U/L (46-116) C-Reactive Protein, Quantitative 25.6 mg/L (0-3.3) Total Protein 6.9 g/dL (6.4-8.2) Albumin 3.3 g/dL (3.4-5.0) Albumin/Globulin Ratio 0.9 (1.0-1.7) Review of Systems Review of Systems: No CP, SOB Assessment and Plan Assessmemt and Plan Problems Medical Problems: (1) DVT of axillary vein, acute right Status: Acute Assessment RT arm, redness, swelling, pain recent admission here Upper Extremity DVT Plan US showed axillary v DVT, oral anticoagulation Cellulitis improving, oral antibiotics HM DVT prophylaxis Labs DC today with antibiotics and anticoagulation Comment Review of Relevant I have reviewed the following items benoit (where applicable) has been applied. Medications: Current Medications Medications (Trade) Dose Ordered Sig/Cristobal Route PRN Reason Start Time Stop Time Status Last Admin Dose Admin Lorazepam (Ativan) 1 mg 1X ONCE PO 08/24/19 19:15 08/24/19 19:16 DC 08/24/19 19:06 Oxycodone/ Acetaminophen (Percocet 10/325) 1 tab 1X ONCE PO 08/24/19 19:15 08/24/19 19:16 DC 08/24/19 19:06 Vancomycin HCl (Vanco Per Pharmacy) 1 each PRN DAILY PRN MC SEE COMMENTS 08/24/19 19:15 08/24/19 21:25 Vancomycin HCl 2 gm/Sodium Chloride 500 ml @ 250 mls/hr 1X ONCE IV 08/24/19 19:45 08/24/19 21:44 DC 08/24/19 19:39 Aspirin (Ecotrin) 81 mg DAILY PO 08/25/19 09:00 08/25/19 09:47 Duloxetine HCl (Cymbalta) 60 mg DAILY PO 08/25/19 09:00 08/25/19 09:46 Albuterol/ Ipratropium (Duoneb) 3 ml RTQID NEB 08/24/19 20:00 08/25/19 12:42 Apixaban (Eliquis) 10 mg 1X ONCE PO 08/24/19 21:15 08/24/19 21:16 DC 08/24/19 21:39 Vancomycin HCl 1.5 gm/Sodium Chloride 500 ml @ 250 mls/hr Q12H IV 08/25/19 08:00 08/25/19 09:46 LAURA ESPITIA III DO Aug 25, 2019 13:24
[2019-08-25] MEDS ORDERED: APIXABAN 5 MG TABLET. PO SCH (14:30)
--- NOTE | 2019-08-25 14:55 | NUR ---
Discharge Note: ALESSANDRA ALEX [address] Discharge instructions and discharge home medications reviewed with Patient and a copy given. All questions have been answered and understanding verbalized. The following instructions and handouts were given: Elif, DVT Discontinued lines and drains: Peripheral IV intact. Patient discharged to Home or Self Care with Spouse via Wheelchair
--- NOTE | 2019-08-26 11:48 | DS ---
DATE OF DISCHARGE: 08/25/2019 ADMISSION DIAGNOSES: Right arm cellulitis and deep vein thrombosis. DISCHARGE DIAGNOSIS: Resolving deep vein thrombosis. HOSPITAL COURSE: The patient is a pleasant middle-aged male who had some type of recent surgery in another facility on his right shoulder. Basically, he developed a DVT and some cellulitis. He was admitted. We started him on heparin and IV antibiotics. We changed him yesterday to Eliquis. He was doing great. We discharged to home on Eliquis. DISPOSITION: Home. ACTIVITY: As tolerated. DIET: Low sodium. MEDICATIONS: I gave him prescriptions for Eliquis 10 p.o. b.i.d. for 1 week, then 5 mg p.o. b.i.d. for 6 months. TOTAL TIME: 32 minutes. LAURA ESPITIA DO DR: Shanita JOB#: [id number] / [id number]
== END 2019-08-25 14:56 | disposition home or self-care (01) | DRG 300 ==
LOC: ER 18:01 → ED HOLD 20:55 → 6 SOUTH 22:30
PROVIDERS: ADMIT Internal Medicine; ATTEND Internal Medicine
DX: I82.629 Acute embolism and thrombosis of deep veins of unspecified upper extremity (principal); L03.113 Cellulitis of right upper limb; I82.A11 Acute embolism and thrombosis of right axillary vein; I50.9 Heart failure, unspecified; J43.9 Emphysema, unspecified; F32.9 Major depressive disorder, single episode, unspecified; I80.8 Phlebitis and thrombophlebitis of other sites; F41.9 Anxiety disorder, unspecified; Z82.49 Family history of ischemic heart disease and other diseases of the circulatory system; Z87.891 Personal history of nicotine dependence; Z98.1 Arthrodesis status
CPT/HCPCS: 36415; 80053; 83605; 85025; 86140; 87040; 93971; 94640; 96365; 96366; J3370; J7040; J7620; 99285-25; G0378

== ENCOUNTER → 2020-03-22 | Outpatient (CLI) | payer BC ==
[~2020-03-22] MED LIST changes: -ASPI-612 PO; +ASPI-886 PO
--- NOTE | 2020-03-22 16:41 | RAD ---
EXAM: Right upper extremity venous Doppler. HISTORY: Right axillary deep venous thrombosis status post anticoagulant therapy. COMPARISON: 08/24/2019. FINDINGS: Grayscale and Doppler analysis of the right upper extremity deep venous system was performed with graded compression and augmentation. The internal jugular, subclavian, axillary, brachial, basilic, cephalic, radial and ulnar veins were assessed. Previously noted deep venous thrombosis within the axillary vein has resolved. Previously noted cephalic vein thrombus has resolved. Occlusive superficial venous thrombus persists within the basilic vein in the upper arm. No thrombus is appreciated elsewhere. IMPRESSION: 1. Previously noted thrombus within the right axillary and cephalic veins has resolved. It persists within the right proximal basilic vein. Electronically signed by: Alex Thompson MD (03/22/2020 4:38 PM) [facility] [place]
== END | disposition home or self-care (01) ==
LOC: US 15:55
PROVIDERS: ATTEND Family Medicine
DX: I82.A11 Acute embolism and thrombosis of right axillary vein (principal)
CPT/HCPCS: 93971